=== PATIENT | male | born 1940 | race Caucasian/White ===

== ENCOUNTER 2023-06-13 15:57 | Emergency (ER) | payer BC ==
[~2023-06-13] VITALS: Ht 167.6 cm; Wt 88.5 kg
--- OUTSIDE RECORDS SUMMARY | 2023-06-13 16:00 | XMS ---
PreManage Notification: EVAN DING Security General House Worker Events No recent Security Events currently on file [facility] There are no care providers on record at this time. Martin has no Care Guidelines for this patient. Cori VISIT COUNT (12 MO.) 1 USMAN Bustamante TOTAL 1 NOTE: Visits indicate total known visits. ED/UCC VISIT TRACKING (12 MO.) 06/13/2023 15:58 USMAN Singh OR TYPE: Emergency COMPLAINT: - GROIN PAIN INPATIENT VISIT TRACKING (12 MO.) No inpatient visits to display in this time frame [email or web address]
[2023-06-13] MEDS ORDERED: HYDROCODON-ACE1 EA10 PO (18:26)
[2023-06-13 18:36] VITALS: BP 114/63
== END 2023-06-13 18:36 | disposition home or self-care (01) ==
LOC: ED 15:57
DX: K40.90 Unilateral inguinal hernia, without obstruction or gangrene, not specified as recurrent (principal)
CPT/HCPCS: 99283; A9270

== ENCOUNTER 2023-07-05 19:19 | Emergency (ER) | payer BC ==
[~2023-07-05] VITALS: Ht 190.5 cm; Wt 88.9 kg
[~2023-07-05 19:19] MED LIST: ADULT ASPIRIN R81 MG PO; AMLODIPINE BESY10 MG PO; ASPIRIN EC325 MG PO; ATORVASTATIN CA40 MG PO; BENAZEPRIL HCL40 MG PO; HYDROCODON-ACE1 EA10 PO; HYDROCODON-ACE1 EA11 PO; HYDROCODON-ACE1 EAC8 PO; ISOSORBIDE MONO30 MG PO; METFORMIN HCL500 MG PO; METOPROLOL SUCC50 MG PO; MOTRIN IB200 MG PO; TAMSULOSIN HCL0.4 MG PO; TRAZODONE HCL100 MG PO; TYLENOL EXTRA500 MG PO
--- OUTSIDE RECORDS SUMMARY | 2023-07-05 19:23 | XMS ---
PreManage Notification: EVAN DING Security Supervisor Grove Events No recent Security Events currently on file CRITERIA MET - [facility] - [facility] - 2 Visits in 30 Days CARE PROVIDERS There are no care providers on record at this time. Martin has no Care Guidelines for this patient. Cori V[facility] (12 MO.) 2 [facility] T[facility] 2 NOTE: Visits indicate total known visits. ED/C VISIT TRACKING (12 MO.) 07/05/2023 19:20 [facility] TYPE: Emergency COMPLAINT: - POST OP PROBLEM 06/13/2023 15:[address] [facility] OR TYPE: Emergency COMPLAINT: - GROIN PAIN DIAGNOSES: - Right lower quadrant pain - Unilateral inguinal hernia, without obstruction or gangrene, not specified as recurrent INPATIENT VISIT TRACKING (12 MO.) No inpatient visits to display in this time frame [id number]
[2023-07-05 20:06] LABS: BASOPHILS 0.1 % (0-2); HEMATOCRIT 42.8 % (35.0-50.0); HEMOGLOBIN 14.1 g/dL (12.0-18.0); LYMPHOCYTES 2.5 % (24-44); MCV 90.9 fl (81-99); MONOCYTES 3.7 % (0-12); NEUTROPHILS 93.7 % (39-80); PLATELET COUNT 173 K/uL (140-440); RBC 4.71 M/ul (4.3-5.7); RDW 15.3 (10.5-15.0)
[2023-07-05 20:13] LABS: INR 1.01 (0.80-1.30); PROTIME 12.8 Sec (11.2-14.2)
[2023-07-05 21:02] VITALS: BP 129/73
== END 2023-07-05 21:06 | disposition home or self-care (01) ==
LOC: ED 19:19
PROVIDERS: Family Medicine
DX: L76.22 Postprocedural hemorrhage of skin and subcutaneous tissue following other procedure (principal); Z79.84 Long term (current) use of oral hypoglycemic drugs; Z79.899 Other long term (current) drug therapy; Z79.82 Long term (current) use of aspirin
CPT/HCPCS: 36415; 85025; 85610; 99283

== ENCOUNTER 2024-03-21 06:02 | Emergency (ER) | payer BC ==
[~2024-03-21] VITALS: Ht 190.5 cm; Wt 87.1 kg
--- OUTSIDE RECORDS SUMMARY | 2024-03-21 06:03 | XMS ---
PreManage Notification: EVAN DING Security Facilities Coordinator Events No recent Security Events currently on file CRITERIA MET - [facility] - [facility] - 2 Visits in 30 Days CARE PROVIDERS There are no care providers on record at this time. Martin has no Care Guidelines for this patient. Cori V[facility] (12 MO.) 4 [facility] 4 NOTE: Visits indicate total known visits. ED/C VISIT TRACKING (12 MO.) 03/21/2024 06:02 [facility] COMPLAINT: - FALL 03/15/2024 13:48 USMAN Singh OR TYPE: Emergency COMPLAINT: - BACK PAIN DIAGNOSES: - Dorsalgia, unspecified - Encounter for issue of repeat prescription - Essential (primary) hypertension - intermediate card tender (current) use of aspirin - assisted (current) use of oral hypoglycemic drugs - Other chronic pain - Other termite treater helper (current) drug therapy 07/05/2023 19:20 USMAN Singh OR TYPE: Emergency COMPLAINT: - POST OP PROBLEM DIAGNOSES: - assisted (current) use of aspirin - intermediate card tender (current) use of oral hypoglycemic drugs - Other chcf (current) drug therapy - Postprocedural hemorrhage of skin and subcutaneous tissue following other procedure 06/13/2023 15:58 USMAN Singh OR TYPE: Emergency COMPLAINT: - GROIN PAIN DIAGNOSES: - Right lower quadrant pain - Unilateral inguinal hernia, without obstruction or gangrene, not specified as recurrent INPATIENT VISIT TRACKING (12 MO.) No inpatient visits to display in this time frame [email or web address]
[2024-03-21 06:33] LABS: NEUTROPHILS 88.7 % (39-80)
[2024-03-21 06:38] LABS: BASOPHILS 0.2 % (0-2); EOSINOPHILS 0.5 % (0-6); HEMATOCRIT 39.9 % (35.0-50.0); HEMOGLOBIN 13.2 g/dL (12.0-18.0); LYMPHOCYTES 4.2 % (24-44); MCH 29.2 (27-36); MCV 88.5 fl (81-99); MONOCYTES 6.4 % (0-12); PLATELET COUNT 138 K/uL (140-440); RBC 4.51 M/ul (4.3-5.7); RDW 15.4 (10.5-15.0)
[2024-03-21 06:54] LABS: ALBUMIN 3.4 g/dL (3.4-5.0); ALBUMIN/GLOBULIN RATIO 1.31 (1.1-2.4); ALCOHOL, MEDICAL <3 ng/dL (<3); ALKALINE PHOSPHATASE 54 U/L (46-116); ALT (SGPT) 21 U/L (14-59); ANION GAP 15.1 (7-21); AST (SGOT) 18 U/L (15-37); BILIRUBIN, TOTAL 0.6 ng/dL (0.2-1.0); BUN/CREATININE RATIO 18.88 (6.0-28.6); CALCIUM 8.4 mg/dL (8.5-10.1); CARBON DIOXIDE 24 mmol/L (21-32); CHLORIDE 94 mmol/L (98-107); CREATINE KINASE 60 U/L (39-308); GLOMERULAR FILTRATION RATE,EST 85 mL/min (>60); MAGNESIUM 1.2 mg/dL (1.8-2.4); POTASSIUM 4.1 mmol/L (3.5-5.1); UREA NITROGEN 17 mg/dL (7-18)
[2024-03-21] MEDS ORDERED: HYDROCODONE/APAP 10/325 1 TAB PO ONE (07:00)
[2024-03-21] MEDS ORDERED: CALCITONIN-SAL3.7 ML NAS (08:30)
[2024-03-21] MEDS ORDERED: PERCOCET 5-3251 EACH PO (08:35)
[2024-03-21] MEDS ORDERED: HYDROCODONE/ACETA 5/325 TAB PO ONE (08:45)
[2024-03-21 08:59] VITALS: BP 138/79
--- NOTE | 2024-03-23 11:28 | EKG ---
[facility] [address] [facility] [place], [place] [address] Signed Atrial fibrillation Indeterminate axis Right bundle branch block Abnormal ECG When compared with ECG of 02-JUL-2023 09:53, No significant change was found Confirmed by DMITRI CHAMBERS MD ([id number]) on 03/23/2024 11:28:49 AM Electronically Signed By: DMITRI CHAMBERS 03/23/24 1128 PATIENT NAME: EVAN DING NEVAREZ Electrocardiogram DATE OF : 44 PHYSICIAN: DMITRI CHAMBERS REPORT #: [id number] REPORT IS CONFIDENTIAL AND NOT TO BE RELEASED WITHOUT AUTHORIZATION
== END 2024-03-21 08:59 | disposition home or self-care (01) ==
LOC: ED 06:02
PROVIDERS: Internal Medicine
DX: S32.019A Unspecified fracture of first lumbar vertebra, initial encounter for closed fracture (principal); W01.0XXA Fall on same level from slipping, tripping and stumbling without subsequent striking against object, initial encounter; I10 Essential (primary) hypertension; R73.03 Prediabetes; Z79.899 Other long term (current) drug therapy
CPT/HCPCS: 36415; 70450; 71045; 72131; 80053; 82553; 83735; 84484; 85025; 93005; 93010; 99284-25; A9270; G0480

== ENCOUNTER 2024-04-01 14:32 | Inpatient (IN) | payer MEDICARE, BC ==
[~2024-04-01] VITALS: Ht 190.5 cm; Wt 87.6 kg
[~2024-04-01 14:32] MED LIST changes: +CALCITONIN-SAL3.7 ML NAS; +PERCOCET 5-3251 EACH PO
--- OUTSIDE RECORDS SUMMARY | 2024-04-01 14:33 | XMS ---
PreManage Notification: EVAN DING Security Key Ringer Events No recent Security Events currently on file CRITERIA MET - [facility] - [facility] - 2 Visits in 30 Days CARE PROVIDERS There are no care providers on record at this time. Martin has no Care Guidelines for this patient. Cori VISIT COUNT (12 MO.) 5 [facility] TOTAL 5 NOTE: Visits indicate total known visits. ED/C VISIT TRACKING (12 MO.) 04/01/2024 14:32 [facility] TYPE: Emergency COMPLAINT: - DIZZINESS 03/21/2024 06:02 USMAN Singh OR TYPE: Emergency COMPLAINT: - FALL DIAGNOSES: - Essential (primary) hypertension - Fall on same level from slipping, tripping and stumbling without subsequent striking against object, initial encounter - Low back pain, unspecified - Other exterminator (current) drug therapy - Prediabetes - Unspecified fracture of first lumbar vertebra, initial encounter for closed fracture 03/15/2024 13:48 USMAN Singh OR TYPE: Emergency COMPLAINT: - BACK PAIN DIAGNOSES: - Dorsalgia, unspecified - Encounter for issue of repeat prescription - Essential (primary) hypertension - salvage determiner (current) use of aspirin - salvage determiner (current) use of oral hypoglycemic drugs - Other chronic pain - Other long-term (current) drug therapy 07/05/2023 19:20 USMAN Singh OR TYPE: Emergency COMPLAINT: - POST OP PROBLEM DIAGNOSES: - salvage determiner (current) use of aspirin - salvage determiner (current) use of oral hypoglycemic drugs - Other exterminator (current) drug therapy - Postprocedural hemorrhage of skin and subcutaneous tissue following other procedure 06/13/2023 15:[address] [facility] OR TYPE: Emergency COMPLAINT: - GROIN PAIN DIAGNOSES: - Right lower quadrant pain - Unilateral inguinal hernia, without obstruction or gangrene, not specified as recurrent INPATIENT VISIT TRACKING (12 MO.) No inpatient visits to display in this time frame [id number]
[2024-04-01] MEDS ORDERED: LISINOPRIL10 MG PO (14:46)
[2024-04-01] MEDS ORDERED: METOPIRONE250 MG PO (14:47)
[2024-04-01] MEDS ORDERED: SODIUM CHLORIDE 0.9% 1,000 ML IV ONE ×3 (15:00→21:22)
[2024-04-01] MEDS ORDERED: HYDROmorphone HCL 1 MG/ML SYR IV PRN ×2 (15:00→23:15)
[2024-04-01 15:09] LABS: BASOPHILS 0.4 % (0-2); EOSINOPHILS 0.8 % (0-6); HEMATOCRIT 35.6 % (35.0-50.0); HEMOGLOBIN 12.2 g/dL (12.0-18.0); LYMPHOCYTES 7.3 % (24-44); MCH 30.1 (27-36); MCHC 34.3 g/dl (30-36); MCV 87.7 fl (81-99); MONOCYTES 9.5 % (0-12); PLATELET COUNT 240 K/uL (140-440); RBC 4.06 M/ul (4.3-5.7); RDW 16.3 (10.5-15.0)
[2024-04-01 15:14] LABS: ALBUMIN 2.9 g/dL (3.4-5.0); ALBUMIN/GLOBULIN RATIO 1.16 (1.1-2.4); ANION GAP 11.4 (7-21); BILIRUBIN, TOTAL 0.5 ng/dL (0.2-1.0); BUN/CREATININE RATIO 13.86 (6.0-28.6); CALCIUM 8.3 mg/dL (8.5-10.1); CREATININE, SERUM 1.01 mg/dL (0.70-1.30); POTASSIUM 3.4 mmol/L (3.5-5.1); PROTEIN, TOTAL 5.4 g/dL (6.4-8.2)
[2024-04-01] MEDS ORDERED: fentaNYL citrate 100 MCG/2 ML VIAL IV PRN (17:00)
[2024-04-01] MEDS ORDERED: ESOMEPRAZOLE MA40 MG PO (18:16)
[2024-04-01] MEDS ORDERED: DULOXETINE HCL30 MG PO (18:17)
[2024-04-01] MEDS ORDERED: LIDOCAINE 2% VISCOUS 6 ML SYR TOP ONE ×2 (19:00→19:30)
[2024-04-01] MEDS ORDERED: LACTATED RINGER'S 1,000 ML IV ONE ×2 (19:15→20:45)
[2024-04-01 19:31] LABS: RDW 16.6 (10.5-15.0)
[2024-04-01 19:34] LABS: BASOPHILS 0.8 % (0-2); EOSINOPHILS 0.4 % (0-6); HEMATOCRIT 31.7 % (35.0-50.0); HEMOGLOBIN 10.5 g/dL (12.0-18.0); MCH 29.6 (27-36); MCV 89.7 fl (81-99); MONOCYTES 7.8 % (0-12); PLATELET COUNT 224 K/uL (140-440); RBC 3.53 M/ul (4.3-5.7)
[2024-04-01 20:05] LABS: ABO O; ANTIBODY SCREEN NEGATIVE; RH POSITIVE
[2024-04-01] MEDS ORDERED: NOREPINEPHRINE BITARTRATE 250 ML IV SCH ×2 (20:15→20:30)
[2024-04-01 20:16] LABS: BILIRUBIN, URINE NEGATIVE (negative); BLOOD/HGB, URINE TRACE-I (Negative); KETONE, URINE NEGATIVE (Negative); LEUK ESTERASE, URINE NEGATIVE (negative); NITRITE, URINE NEGATIVE (negative)
[2024-04-01 20:24] LABS: EPITHELIAL CELLS, URINE SQUAMOUS 1+ /lpf (0-1+)
[2024-04-01 20:25] LABS: BACTERIA, URINE RARE /hpf (negative); CASTS, URINE NONE SEEN \\lpf; COLLECTION TYPE, URINE CATH; CRYSTALS, URINE NONE SEEN (0-1+); REFLEX CULTURE, URINE No (No); WHITE BLOOD CELLS, URINE 0-1 /HPF (0-5)
[2024-04-01] MEDS ORDERED: ondansetron HCL 4 MG/2 ML VIAL ONE (20:45)
[2024-04-01] MEDS ORDERED: propofoL 200 MG/20 ML VIAL ONE (20:45)
[2024-04-01] MEDS ORDERED: KETOROLAC TROMETHAMINE 30 MG/ML VIAL ONE (20:45)
[2024-04-01] MEDS ORDERED: ROCURONIUM BROMIDE 50 MG/5 ML SYR ONE (20:45)
[2024-04-01] MEDS ORDERED: SUCCINYLCHOLINE IN 0.9% NACL 200 MG/10 ML SYRINGE ONE (20:45)
[2024-04-01] MEDS ORDERED: SUGAMMADEX SODIUM 200 MG/2 ML ML ONE (20:45)
[2024-04-01] MEDS ORDERED: MIDAZOLAM HCL 2 MG/2 ML VIAL ONE ×2 (20:45→22:59)
[2024-04-01] MEDS ORDERED: FAMOTIDINE 20 MG/ 2 ML VIAL ONE (20:45)
[2024-04-01] MEDS ORDERED: fentaNYL citrate 100 MCG/2 ML VIAL ONE (20:45)
[2024-04-01] MEDS ORDERED: METOCLOPRAMIDE HCL 10 MG/2 ML SDV ONE (20:45)
[2024-04-01] MEDS ORDERED: DEXAMETHASONE SOD PHOS 4 MG/ML VIAL ONE (20:45)
[2024-04-01] MEDS ORDERED: LIDOCAINE HCL 4% 5 ML AMP ONE (20:46)
[2024-04-01] MEDS ORDERED: ETOMIDATE 40 MG/20 ML VIAL ONE (20:50)
[2024-04-01 20:54] LABS: IS CROSSMATCH COMPATIBLE
[2024-04-01 20:54] LABS: ABO O; RH POSITIVE
[2024-04-01] MEDS ORDERED: TRANEXAMIC ACID IN NACL,ISO-OS 1,000 MG/100 ML PIGGYBACK IV SCH (21:00)
[2024-04-01] MEDS ORDERED: WATER STERILE 20 ML VIAL ONE (22:41)
[2024-04-01] MEDS ORDERED: VECURONIUM BROMIDE 20 MG VIAL IV ONE (22:41)
[2024-04-01 22:55] VITALS: BP 122/86
[2024-04-01 23:00] VITALS: BP 129/92
[2024-04-01] MEDS ORDERED: ACETAMINOPHEN 650 MG SUPP PR PRN (23:15)
[2024-04-01] MEDS ORDERED: PROCHLORPERAZINE EDISYLATE 10 MG/2 ML VIAL IV PRN (23:15)
[2024-04-01] MEDS ORDERED: ondansetron HCL 4 MG/2 ML VIAL IV PRN (23:15)
[2024-04-01] MEDS ORDERED: DEXTROSE 5% - LACTATED RINGERS 1,000 ML IV SCH (23:15)
--- NOTE | 2024-04-01 23:18 | NUR ---
04/01/24 0336 Abril Philippe 6778-PATIENT TRANSPORTED FROM OR TO CCU ON A VENTILATOR WITH CELINA JAQUEZ AND STAFF RNS'S. CELINA JAQUEZ GAVE REPORT TO CCU RN'S WHO WILL RESUME CARE. HOSPITALIST AT BEDSIDE
[2024-04-01 23:19] VITALS: BP 115/83
[2024-04-01 23:30] VITALS: BP 116/77
[2024-04-01 23:34] LABS: BASE EXCESS, BLOOD GAS -12.3 mmol/L (-2-2); HCO3, BLOOD GAS 15.9 mmol/L (22-26); O2 SATURATION, BLOOD GAS > 100.0 % (95.0-100.0); PCO2, BLOOD GAS 39.6 mmHg (35-45); PO2, BLOOD GAS 319 mmHg (80-100); TOTAL CO2, BLOOD GAS 17.2
[2024-04-01 23:35] LABS: OXYGEN RECEIVED, BLOOD GAS 100
[2024-04-01 23:36] LABS: PLATELET COUNT 136 K/uL (140-440)
[2024-04-01 23:39] LABS: BASOPHILS 0.6 % (0-2); EOSINOPHILS 0.6 % (0-6); HEMATOCRIT 43.1 % (35.0-50.0); HEMOGLOBIN 13.8 g/dL (12.0-18.0); LYMPHOCYTES 6.1 % (24-44); MCH 29.1 (27-36); MCHC 32.1 g/dl (30-36); MCV 90.6 fl (81-99); MONOCYTES 4.4 % (0-12); NEUTROPHILS 88.3 % (39-80); RBC 4.76 M/ul (4.3-5.7); RDW 16.3 (10.5-15.0)
[2024-04-01 23:45] VITALS: BP 105/92
[2024-04-01] MEDS ORDERED: METOPROLOL TARTRATE 5 MG/5 ML VIAL IV PRN (23:45)
[2024-04-01] MEDS ORDERED: MIDAZOLAM HCL 100 MG in DEXTROSE 5% 80 ML IV SCH (23:45)
[2024-04-01] MEDS ORDERED: EPINEPHrine HCL 4 MG in DEXTROSE 5% 250 ML IV SCH (23:45)
[2024-04-01 23:52] LABS: ALBUMIN 2.5 g/dL (3.4-5.0); ALBUMIN/GLOBULIN RATIO 1.14 (1.1-2.4); ANION GAP 17.9 (7-21); BILIRUBIN, TOTAL 0.6 ng/dL (0.2-1.0); BUN/CREATININE RATIO 13.53 (6.0-28.6); CALCIUM 7.5 mg/dL (8.5-10.1); CREATININE, SERUM 1.33 mg/dL (0.70-1.30); MAGNESIUM 1.6 mg/dL (1.8-2.4); POTASSIUM 3.9 mmol/L (3.5-5.1); PROTEIN, TOTAL 4.7 g/dL (6.4-8.2)
[2024-04-02] VITALS (37 sets, daily range): BP systolic 73–137; BP diastolic 29–100
[2024-04-02] MEDS ORDERED: MIDAZOLAM HCL 2 MG/2 ML VIAL IV ONE
--- NOTE | 2024-04-02 | NUR ---
PT ARRIVED TO UNIT FROM OR VIA STRETCHER. REPORT RECEIVED FROM OR NURSE AND MARKET RESEARCH COORDINATOR. PT INTUBATED, SEDATED, AND PARALYZED. PT ET TUBE 25 CM AT THE TEETH. OG IN PLACE AND ON INTERMITTENT SUCTION. VENT SETTING; RATE 20, FIO2 100, TV 500, AND PEEP 5. RASS SCORE -5. PT JOANNE DRAIN ON LOWER LEFT ABDOMEN DRAINING BRIGHT RED BLOOD, DRESSING C/D/I. PT SURGICAL SITE DRESSING C/D/I. PT FUNEZ CATH IS PATENT AND SECURED AT PT THIGH. PT HAS SCD IN PLACE. PT COOL TO TOUCH, RECTAL TEMP TAKEN; 95.4. BEAR HUGGER PLACED ON PT AND WARM BLANKETS PROVIDED. PT HAS LEFT FEMORAL TRIPLE LUMEN AND RIGHT AC 18G IV. SOFT RESTRAINTS IN PLACE TO BILAT ARMS. RT AT BEDSIDE. DR MCKAY AND DR SHIPMAN AT BEDSIDE, PLAN OF CARE AND ORDERS DISCUSSED. VSS AND NAD NOTED VIA CONTINOUS MONITOR AND DIRECT OBSERVATION.
[2024-04-02] MEDS ORDERED: GLUCAGON,HUMAN RECOMBINANT 1 MG/ML VIAL SUB-Q PRN (00:30)
[2024-04-02] MEDS ORDERED: MAGNESIUM SULFATE 2 GM/50 ML BAG IV ONE (00:30)
[2024-04-02] MEDS ORDERED: DEXTROSE 50% 50 ML SYR IV PRN ×2 (00:30)
[2024-04-02] MEDS ORDERED: DEXTROSE 5% 1,000 ML IV PRN (00:30)
[2024-04-02] MEDS ORDERED: IBLOOD GLUCOSE TEST STRIP 1 EA TEST XX PRN (00:30)
--- NOTE | 2024-04-02 00:47 | EKG ---
[facility] [address] [facility] [place] [address] Signed Atrial fibrillation Left axis deviation Right bundle branch block Abnormal ECG When compared with ECG of 21-MAR-2024 06:30, No significant change was found Confirmed by Analia Mckay MD () on 04/02/2024 12:47:30 AM Electronically Signed By: ANALIA MCKAY MD 04/02/24 0047 PATIENT NAME: EVAN DING NEVAREZ Electrocardiogram DATE OF : 44 PHYSICIAN: ANALIA MCKAY MD REPORT #: [id number] REPORT IS CONFIDENTIAL AND NOT TO BE RELEASED WITHOUT AUTHORIZATION
--- NOTE | 2024-04-02 00:48 | EKG ---
[facility] [address] [facility] [place] [address] Signed Atrial fibrillation with rapid ventricular response Left axis deviation Right bundle branch block Abnormal ECG When compared with ECG of 01-APR-2024 14:31, No significant change was found Confirmed by Analia Mckay MD () on 04/02/2024 12:48:02 AM Electronically Signed By: ANALIA MCKAY MD 04/02/24 0048 PATIENT NAME: EVAN DING Electrocardiogram DATE OF : 44 PHYSICIAN: ANALIA MCKAY MD REPORT #: [id number] REPORT IS CONFIDENTIAL AND NOT TO BE RELEASED WITHOUT AUTHORIZATION
[2024-04-02] MEDS ORDERED: Insulin Regular, Human 100 UNIT/ML ML SUB-Q SCH (02:00)
[2024-04-02] MEDS ORDERED: IBLOOD GLUCOSE TEST STRIP 1 EA TEST VI SCH (02:00)
--- NOTE | 2024-04-02 02:00 | NUR ---
PT REMAINS AT A RASS SCORE OF -5. PT ET TUBE 25 CM AT THE TEETH. OG IN PLACE, ON LOW INTERMITTENT SUCTION. PT FUNEZ CATH REMAINS PATENT AND DRAINING. PT SURGICAL DRESSING C/D/I. PT JOANNE DRAIN IN PLACE AND CONTINUES TO DRAIN BRIGHT RED BLOOD. RESTRAINTS REMAIN IN PLACE. PT LEFT FEMORAL TRIPLE LUMEN AND 20G RIGHT AC IV SITE PATENT AND INFUSING PER EMAR. BEAR HUGGER STILL IN PLACE. SCD'S IN PLACE. PT VSS, NO DISTRESS NOTED. WILL CONTIUE TO MONITOR VIA CONTINOUS MONITOR AND DIRECT OBSERVATION.
[2024-04-02] MEDS ORDERED: ETOMIDATE 40 MG/20 ML VIAL IV ONE ×3 (02:51→07:00)
[2024-04-02] MEDS ORDERED: EPINEPHrine HCL 4 MG in DEXTROSE 5% 250 ML IV SCH (03:00)
[2024-04-02] MEDS ORDERED: NOREPINEPHRINE BITARTRATE 250 ML IV SCH (03:00)
[2024-04-02] MEDS ORDERED: ROCURONIUM BROMIDE 50 MG/5 ML VIAL IV ONE ×2 (03:00)
--- NOTE | 2024-04-02 03:00 | NUR ---
RT IN FOR ABG DRAW. PATIENT VS STABLE; TITRATED PRESSORS PER ORDER. SEE FLOWSHEET.
[2024-04-02 03:21] LABS: BASE EXCESS, BLOOD GAS -7.4 mmol/L (-2-2); HCO3, BLOOD GAS 18.7 mmol/L (22-26); O2 SATURATION, BLOOD GAS 99.1 % (95.0-100.0); PCO2, BLOOD GAS 37.6 mmHg (35-45); PH, BLOOD GAS 7.3 (7.35-7.45); TOTAL CO2, BLOOD GAS 19.9
--- NOTE | 2024-04-02 03:27 | NUR ---
DISCUSSED PATIENT LAB FINDINGS WITH . ORDERS RECEIVED FOR IV MAG REPLACEMENT, ACCU CHECKS AND SSI. MEDS PROVIDED PER ORDER, SEE EMAR.
[2024-04-02] MEDS ORDERED: PIPERACILLIN/TAZOBACTAM 3.375 GM VIAL ONE (05:05)
--- NOTE | 2024-04-02 05:17 | NUR ---
labs drawn per femoral site; collection per policy. site draws easily.
[2024-04-02 05:22] LABS: BASOPHILS 0.2 % (0-2); HEMATOCRIT 40.3 % (35.0-50.0); HEMOGLOBIN 13.6 g/dL (12.0-18.0); LYMPHOCYTES 1.9 % (24-44); MCH 29.4 (27-36); MCHC 33.6 g/dl (30-36); MCV 87.5 fl (81-99); MONOCYTES 4.5 % (0-12); NEUTROPHILS 93.4 % (39-80); PLATELET COUNT 155 K/uL (140-440); RBC 4.61 M/ul (4.3-5.7); RDW 16.3 (10.5-15.0)
[2024-04-02 05:43] LABS: ALBUMIN 2.4 g/dL (3.4-5.0); ALBUMIN/GLOBULIN RATIO 0.96 (1.1-2.4); ANION GAP 14.7 (7-21); BUN/CREATININE RATIO 11.66 (6.0-28.6); CALCIUM 7.6 mg/dL (8.5-10.1); CREATININE, SERUM 1.8 mg/dL (0.70-1.30); PHOSPHORUS, INORGANIC 6.7 mg/dL (2.5-4.9); POTASSIUM 4.7 mmol/L (3.5-5.1); PROTEIN, TOTAL 4.9 g/dL (6.4-8.2)
[2024-04-02] MEDS ORDERED: PIPERACILLIN/TAZOBACTAM 3.375 GM in DEXTROSE 5% 100 ML IV SCH (06:00)
--- NOTE | 2024-04-02 06:00 | NUR ---
PT TRIPLE LUMEN DRESSING CHANGED. ABX HUNG PER EMAR. PT RASS SCORE -5. PT BP TRENDING DOWN, DESPITE TITRATIONS PER FLOWSHEET. PT UO INSUFFICIANT.
--- NOTE | 2024-04-02 06:21 | NUR ---
update provided to on patient's vs, urine output and labs. Order for NS bolus, see emar.
[2024-04-02] MEDS ORDERED: SODIUM CHLORIDE 0.9% 1,000 ML IV SCH (06:30)
[2024-04-02 06:43] LABS: BASE EXCESS, BLOOD GAS -8.7 mmol/L (-2-2); HCO3, BLOOD GAS 18.2 mmol/L (22-26); O2 SATURATION, BLOOD GAS 96.2 % (95.0-100.0); OXYGEN RECEIVED, BLOOD GAS 40%; PH, BLOOD GAS 7.23 (7.35-7.45); PO2, BLOOD GAS 94 mmHg (80-100); TOTAL CO2, BLOOD GAS 19.5
--- NOTE | 2024-04-02 06:48 | OR ---
[facility] [address] [place], [place] [address] Signed DATE OF OPERATION: 04/01/2024 SURGEON: Jonathan Shipman MD PREOPERATIVE DIAGNOSES: 1. Ruptured spleen with bleeding. 2. L1 fracture. POSTOPERATIVE DIAGNOSES: 1. Ruptured spleen with bleeding. 2. L1 fracture. PROCEDURE: Splenectomy and placement of left upper quadrant drain. ESTIMATED BLOOD LOSS: 1500 to 2000 mL. In was 6 units packed red blood cells, 2 units of FFP, and 1 L crystalloid. Out was several 100 mL of urine. 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 About 7 days ago, he fell and he came to emergency room with an L1 fracture. The bone was too thin for the neurosurgeon doing anything mechanically. He was sent home with a TLSO brace. He has had a lot of trouble in the home using the brace with the help of his friends and neighbors. He took another fall in the bathroom because he was dizzy. He was brought to our local emergency room. I really do not know all those details because he was an emergent case. Initially, the repeat CT scan showed the L1 fracture had not changed, but he certainly had a rather large spleen and blood in his abdomen. He had a repeat CT with some contrast and it showed that he was bleeding from the spleen. He became hypotensive and required active resuscitation in the ER by our 2 ER doctors who were changing shifts. I was called to come emergently to see Evan. He was alert, awake, and interactive and able to talk to me just before he was intubated. He already had his peripheral IVs placed and a left femoral catheter placed by our ER physician. Because he was so hypotensive, they were unable to place an IJ even with the assistance of the ultrasound. Amazingly, his abdomen was generally soft and flat. He did tell me he wanted everything done and he wanted to be a full code. He understands this was quite serious and that there is risk including, but not limited to bleeding, infection, scarring, change in contour of the skin, pancreatitis, and even Electronically Signed By: JONATHAN SHIPMAN MD 04/02/24 0648 PATIENT NAME: EVAN DING OPERATIVE REPORT DATE OF : 44 REPORT #: [id number] PHYSICIAN: JONATHAN SHIPMAN MD PCP: ANALIA SORIA MD REPORT IS CONFIDENTIAL AND NOT TO BE RELEASED WITHOUT AUTHORIZATION [address] [address] Signed . I also had the opportunity to call his briefly while we came into the OR. I reviewed the above findings with her as well. She also expressed understanding and wished to proceed. PROCEDURE NOTE: Evan was transferred over to our operating room table in the supine position. He was already intubated and therefore was placed back on the ventilator. He already had his Rosenberg catheter in place. He did not need any subcutaneous Lovenox or heparin given his bleeding spleen. SCDs were utilized. He was prepped and draped with Betadine solution. A standard left subcostal incision was made almost 3 fingerbreadths below his costal margin. We entered the abdomen with the help of the cautery and encountered of course a large amount of dark liquid and clotted blood. It took a few minutes to get that up out of the left lower quadrant. His spleen was actually in several pieces. The hilum was still attached of course and we came across that with 2 Pean clamps and the curved mayos. That was secured with 0 Vicryl ties. We took a minute to suction out the blood and found a couple of other small arterials and veins that we tied off with 0 Vicryl suture as well. We then packed the right upper quadrant with blue towels while we actively resuscitated him in the OR. He eventually received 6 units of packed red blood cells and 2 units of FFP along with a liter of crystalloid. With that, his systolic blood pressure that had been as low as 45 and it came back up over 100 and his heart rate came back down and we were able to turn the norepinephrine and epinephrine back down as well. We then used several liters of warm saline solution and we irrigated out his abdomen and suctioned out until clear. We took a look around at the liver and it looked fine. We went back and looked at the bed of the spleen and it was quite unremarkable without any ongoing bleeding. We brought a #10 flat Brooks drain through the lateral aspect of the left costal margin and we placed it into the splenic bed. There was just a small rent in the mesentery along the greater curve of the spleen. We closed that with a running 2-0 Vicryl suture so the bowel would not go up in that hole. Again, we had suctioned out the abdomen from the bed from all the way down into the pelvis. We then closed the abdominal wall in layers with running #1 PDS suture. We injected local anesthetic into the abdominal wall. The abdominal was irrigated once again. We then closed the dermis with interrupted 3-0 subcuticular Monocryl sutures. [place] were used to reapproximate the skin. Dry gauze and tape were then applied. After this, Evan was left intubated and paralyzed and transferred over to his hospital bed and taken in the ICU in much improved but critical condition. Jonathan Shipman MD Electronically Signed By: JONATHAN SHIPMAN MD 04/02/24 0648 PATIENT NAME: EVAN DING OPERATIVE REPORT DATE OF : 44 REPORT #: [id number] PHYSICIAN: JONATHAN SHIPMAN MD PCP: ANALIA SORIA MD REPORT IS CONFIDENTIAL AND NOT TO BE RELEASED WITHOUT AUTHORIZATION [address] [place], [place] [address] Signed [facility]/MODL /[id number] cc: MD Jonathan Quiroz MD Copies: ANALIA SORIA MD, ANDREW L MD ~ Electronically Signed By: JONATHAN SHIPMAN MD 04/02/24 0648 PATIENT NAME: EVAN DING OPERATIVE REPORT DATE OF : 44 REPORT #: [id number] PHYSICIAN: JONATHAN SHIPMAN MD PCP: ANALIA SORIA MD REPORT IS CONFIDENTIAL AND NOT TO BE RELEASED WITHOUT AUTHORIZATION
--- NOTE | 2024-04-02 06:48 | CONS ---
[facility] [address] [place], [place] [address] Signed DATE OF CONSULTATION: CHIEF COMPLAINT: Ground level fall. HISTORY OF PRESENT ILLNESS: Tyrese is an 84-year-old gentleman who came about a week ago to the ER after a fall and he had an L1 fracture. The neurosurgeon felt the bone was not sufficient enough to repair that mechanically. He had him use a TLSO brace. He had gone back home. He apparently is the primary care provider for his . He was having lot of trouble using the brace, and was having friends and neighbors help. He was feeling dizzy and he had another fall in the bathroom. He ended up coming to the emergency room. The exact details I do not know because I was called as he was hypotensive and tachycardic. Upon my arrival to the ER, he was awake, alert, and able to talk to me and gave us permission for the splenectomy for his ruptured spleen. He had already had a triple-lumen catheter placed in his left femoral vein by our ER doctor. He had 2 peripheral IVs and a Rosenberg catheter in place. Just after that, he was intubated and placed on the ventilator. He had been in the ER initially and there was no worsening of his L1 fracture, but they noticed blood in the abdomen, and he had a repeat CT scan with contrast and it showed that his spleen was ruptured and bleeding. He became hypotensive and was undergoing active resuscitation. I was called and arrived to the ER. PAST MEDICAL HISTORY: Inguinal hernia, chronic pain, hypertension, and he is a prediabetic. PAST SURGICAL HISTORY: Right inguinal hernia repair, CABG x3, and an aortobifem graft. SOCIAL HISTORY: He has a drink once in a while. He is to his , [place], at #[phone] Dr. Analia Vences is his primary care provider. He prefers the [facility]. He asked to be a full code. FAMILY HISTORY: Not reviewed. REVIEW OF SYSTEMS: Not reviewed. ALLERGIES: None. MEDICATIONS: [place] 10 mg, atorvastatin, trazodone, metyrapone, Nexium, duloxetine, calcitonin, Electronically Signed By: JONATHAN SHIPMAN MD 04/02/24 0648 PATIENT NAME: EVAN DING CONSULTATION DATE OF : 44 REPORT #: [id number] PHYSICIAN: JONATHAN SHIPMAN MD PCP: ANALIA SORIA MD REPORT IS CONFIDENTIAL AND NOT TO BE RELEASED WITHOUT AUTHORIZATION [facility] [address] [place] [address] Signed Percocet 5 mg, benazepril, metoprolol, isosorbide mononitrate, and metformin. PHYSICAL EXAMINATION: VITAL SIGNS: His blood pressure was 93/60, heart rate 78, respiratory rate 10, temperature was 98.2, and he was 92% on 2 L, but he was losing his O2 sats and therefore was intubated. He was 6 feet 3 inches tall at 85 kg with body mass index of 23. GENERAL: Evan was lying supine in his ER bed with staff in the room including Dr. Fernando Samuels who was coming in at the change of shifts. Amazingly, he was alert and awake, but not enough to talk to me. LUNGS: Clear to auscultation. CARDIOVASCULAR: On the monitor, he appeared to be in sinus rhythm. ABDOMEN: Generally soft and flat. He had a large ecchymosis over his right ribcage and over his right hand, probably from last week, that is quite dark. LABORATORY DATA: His white blood cell count is 9.3, hemoglobin was 12.2 and the repeat was 10.5, and platelets 224. Sodium is 130, his BUN is 14, and creatinine 1.0. BNP was 1863. Troponin was negative. UA was negative. Liver function tests were negative. Albumin is 2.9. RADIOGRAPHIC STUDIES: The CT scan of abdomen and pelvis I reviewed quickly with the ER doctor and he clearly has a significant splenic rupture and you can see the flush of contrast. ASSESSMENT AND PLAN: Evan is an 84-year-old gentleman with L1 fracture, but he has ruptured his spleen with significant bleeding to the point that he is hypotensive. He is undergoing active resuscitation. He asked me that, during the code form, he wanted to be a full code. He understands there is risk to the surgery including, but not limited to, bleeding, infection, scarring, change in contour of the skin as well as pancreatitis and other unforeseen comorbidities including . I also had opportunity to call his briefly on the phone as we went into the OR and explained her the above findings as well. She also expressed understanding and agreed with the above plan. Jonathan Shipman MD ALB/MODL /[id number] Electronically Signed By: JONATHAN SHIPMAN MD 04/02/24 0648 PATIENT NAME: TIMUREVAN ALEJO CONSULTATION DATE OF : 44 REPORT #: [id number] PHYSICIAN: JONATHAN SHIPMAN MD PCP: ANALIA SORIA MD REPORT IS CONFIDENTIAL AND NOT TO BE RELEASED WITHOUT AUTHORIZATION [address] [place], [place] [address] Signed cc: MD Analia Beaver MD Patient Chart Copies: JONATHAN SHIPMAN MD, KEVIN R MD ~ Electronically Signed By: JONATHAN SHIPMAN MD 04/02/24 0648 PATIENT NAME: EVAN DING CONSULTATION DATE OF : 44 REPORT #: [id number] PHYSICIAN: JONATHAN SHIPMAN MD PCP: ANALIA SORIA MD REPORT IS CONFIDENTIAL AND NOT TO BE RELEASED WITHOUT AUTHORIZATION
[2024-04-02] MEDS ORDERED: CALCIUM GLUCONATE 1,000 MG/10 ML VIAL IV ONE (07:15)
[2024-04-02 07:26] LABS: CHOLESTEROL/HDL RATIO 2.1
--- NOTE | 2024-04-02 07:30 | NUR ---
REPORT RECIEVED FROM DIVISION OPERATIONS SPECIALIST RN. PATIENT ON VENTILATOR 40% VT- 500, PEEP 5, RR- 20. ETT 25 A TTHE LIPS. PER REPORT THIS IS A HIGH PLACEMENT AND P[OSSIBLE FURTHER INSERTION OR TUBE EXCHANGE IS NEEDED. PATIENT ON LEVOPHED AT 20MCG/MIN PER REPORT. VERSED HAS BEEN OFF SINCE 0500. PATIENT MORE FIDGITY NOW AT THIS TIME. PATIENTS EYES ARE NOTED TO BE PINPOINT. MD SHIPMAN AWARE. PATIENT RESTRAINTS IN PLACE. PATIENT NOT WEARING HIS BACK BRACE FROM RECENT BACK FX. PER REPORT PATIENT IS ALLOWED TO SLEEP WITH IT OFF. PATIENT HAS HAD VERY MINIMAL URINE OUTPUT.
[2024-04-02] MEDS ORDERED: Calcium Gluconate in NS 1,000 MG/50 ML BAG IV SCH (07:45)
[2024-04-02] MEDS ORDERED: PANTOPRAZOLE SODIUM 40 MG/10 ML VIAL IV SCH (09:00)
--- NOTE | 2024-04-02 09:30 | NUR ---
CALLED MD MURRAY TO THE BEDSIDE TO ADDRESS CONCERNS. PATIENT SPO2 NOT READING ON ANY SITE. PATIENT IS COLD AND CLAMMY IN THE EXTREMITIES INCLUDING HIS NOSE/EAR WHERE CENTRAL SPO2 MONITORS READ. RT AT THE BEDSIDE. SEE NEW ORDERS FOR LABS AND ABG FOR OXYGEN CONFIRMATION. ADDRESSED LOW URINE OUTPUT OF 5MLS. WILL GET LABS AND THEN UPDATED RAMONITA OF LABS AND CURRENT CONDITION. PATIENTS BLOOD PRESSURE HAS DECREASED AND HAD TO INCREASE ON NOREPI FOR BLOOD PRESSURE SUPPORT. VERSED RESTARTED. PATIENT OPENED EYES BUT DID NOT FOLLOW OTHER COMMANDS. PATIENT RESTLESS AND FIDGITY. DOSE OF FENTANYL GIVEN D/T AGITATION/PAIN.
--- NOTE | 2024-04-02 09:31 | NUR ---
UR CLINICAL REVIEW: 2MN [facility] INPT MEDICARE INPT 04/01/24 AT 2314 TO CCU ORDER MATCHES STATUS NO AUTH REQUIRED PER MEDICARE RULES. SNF PLACEMENT LIKELY AT TIME OF DC. DC PLAN PENDING PATIENT AND FAMILY DECISION.
[2024-04-02 09:37] LABS: INR 1.23 (0.80-1.30); PROTIME 14.7 Sec (11.2-14.2)
[2024-04-02 09:48] LABS: BASE EXCESS, BLOOD GAS -8.5 mmol/L (-2-2); HCO3, BLOOD GAS 16.6 mmol/L (22-26); OXYGEN RECEIVED, BLOOD GAS 30%; PCO2, BLOOD GAS 33.4 mmHg (35-45); PH, BLOOD GAS 7.31 (7.35-7.45); PO2, BLOOD GAS 152 mmHg (80-100); TOTAL CO2, BLOOD GAS 17.5
[2024-04-02] MEDS ORDERED: CALCITONIN-SAL3.7 ML NAS (10:03)
[2024-04-02 10:08] LABS: HEMATOCRIT 35.4 % (35.0-50.0); HEMOGLOBIN 11.6 g/dL (12.0-18.0); MCH 29.3 (27-36); MCHC 32.9 g/dl (30-36); MCV 89.2 fl (81-99); PLATELET COUNT 155 K/uL (140-440); RBC 3.97 M/ul (4.3-5.7); RDW 16.3 (10.5-15.0)
[2024-04-02 10:21] LABS: ALBUMIN 2.1 g/dL (3.4-5.0); ANION GAP 15.6 (7-21); BILIRUBIN, TOTAL 0.7 ng/dL (0.2-1.0); BUN/CREATININE RATIO 11.44 (6.0-28.6); CALCIUM 7.9 mg/dL (8.5-10.1); CREATININE, SERUM 2.01 mg/dL (0.70-1.30); POTASSIUM 4.6 mmol/L (3.5-5.1); PROTEIN, TOTAL 4.2 g/dL (6.4-8.2)
--- NOTE | 2024-04-02 10:30 | NUR ---
RT IN TO ADVANCE ETT PER MD MURRAY. XRAY CONFIRMED PLACEMENT. ETT 27 AT THE [facility].
[2024-04-02 10:35] LABS: BANDS, MANUAL DIFF 24; LYMPHOCYTES, MANUAL DIFF 5; MONOCYTES, MANUAL DIFF 3; NEUTROPHILS, MANUAL DIFF 68
[2024-04-02 10:36] LABS: BASOPHILS, MANUAL DIFF 0; EOSINOPHILS, MANUAL DIFF 0
--- NOTE | 2024-04-02 10:56 | NUR ---
CALLED MD SHIPMAN TO UPDATE OF PATIENTS LABS. ADRESSES CONCERNS OF PATIENTS H/H DROPPING. LACTIC ACID REMAINING ELEVATED, AND BUN/CREAT WORSENING. REPORTED MD SWANSON SUGESTIONS OF IMAGING, FLUIDS, AND ART LINE. PER MD SHIPMAN GIVE 2 UNITS PRBC AND 2 UNITS FFP. OKAYED ART LINE. NO FLUID CHANGES AT THIS TIME. NOTIFIED BOTH MDS OF INCREASE IN PRESSORS AND INABILITY TO GET SPO2 ON MONITOR. ABG WAS DONE AND PO2 150'S. PATIENT HAS HAD ONLY 5MLS URINE OUTPUT IN 4 HOURS. BOTH MDS AWARE. PATIENT CURRENTLY ON 30MCG/MIN. PATIENT VERY CLAMMY AND COLD IN EXTREMITIES. WARM BLANKETS APPLIED TO EXTREMITIES. DAVID NOTIFIED OF ART LINE NEED.
--- NOTE | 2024-04-02 10:58 | NUR ---
VISITED DURING SPIRITUAL CARE ROUNDS. PT UNABLE TO TALK. PROVIDED PRAYER.
--- NOTE | 2024-04-02 11:26 | NUR ---
CALLED AND SPOKE WITH KUSH, . PATIENT LIVES WITH HER IN THEIR HOUSE. KUSH STATES THEY HAVE STAIRS, BUT THEY DO NOT USE THEM. PATIENT USES A WALKER AT [place] BUT NO OTHER DME PER . NEITHER THE PATIENT NOR HIS DRIVE, BUT SHE STATES THEY HAVE FAMILY MEMBERS WHO ASSIST THEM. KUSH DENIES DIFFICULTIES FINANCIALLY. DID ATTEMPT TO CALL STEVENSON, SON, PHONE NUMBER IS SAME AT PATIENT AND SPOUSE NUMBER AND HIS WORK NUMBER LISTED IS NON-WORKING. KUSH DENIES NEEDS AT THIS TIME. INFORMED HER SHE WILL BE NOTIFIED IF THERE ARE ANY CHANGES TO PATIENT CONDITION. SHE VERBALIZES UNDERSTANDING.
--- NOTE | 2024-04-02 11:30 | NUR ---
PATIENT REPOSITIONED WITH PILLOW SUPPORT. PATIENT NOTED TO HAVE REDDNEND AREA ON LEFT BUTTOCK. PICTURE TAKEN AND PLACED IN CHART. FOAM BOARDER PLACED FOR SKIN PROTECTION.
--- NOTE | 2024-04-02 11:32 | NUR ---
LAUREN WITH ANASTHESIA AT THE BEDSIDE TO TRY FOR ARTLINE.
[2024-04-02 12:34] LABS: IS CROSSMATCH COMPATIBLE
[2024-04-02 12:35] LABS: RBC, LEUKOREDUCED 18212410429900C; RBC, LEUKOREDUCED 18212412929800I
[2024-04-02 12:36] LABS: RBC, LEUKOREDUCED 18212410262500B-2
[2024-04-02 12:38] LABS: RBC, LEUKOREDUCED 18212405543200X; RBC, LEUKOREDUCED 18212409102600Y
[2024-04-02 12:40] LABS: FRESH FROZEN PLASMA 202123815248003-2; FRESH FROZEN PLASMA 20212389732200N
--- NOTE | 2024-04-02 13:30 | NUR ---
MD MURRAY AT THE BEDSIDE. UPDATED ON CONTINUED NO URINE OUTPUT. PATIENT RECIEVING BLOOD AND FFP AT THIS TIME. PATIENT TOLERATING WELL WITH NO ISSUES. SEE ORDERS FOR NEW LABS.
--- NOTE | 2024-04-02 13:30 | NUR ---
PATIENT REPOSITIONED WITH PILLOW SUPPORT.
--- NOTE | 2024-04-02 14:00 | NUR ---
PATIENT REPOSTIONED WITH PILLOW SUPPORT. PATIENT DRAW SHEET WAS CHANGED PRIOR IN SHIFT. GOWN CHANGED.
[2024-04-02] MEDS ORDERED: MULTIVITAMINS 10 ML,ZINC/COPPER/MANGANESE/SELENIUM 1 ML in AA 5% DEXT 20% WITH LYTES 2,... IV SCH (16:00)
--- NOTE | 2024-04-02 16:01 | NUR ---
MD CHAMBERS IN AT THE [facility]. REVIEWED PLAN OF CARE WITH MD AND CONCERNS FOR PATIENT. PER MD DO A CVP. CVP DONE AND NOTED TO BE 1-2. MD UPDATED MD SHIPMAN AND NEW ORDERS FOR A BOLUS AND REPEAT LABS. LABS ORDERED FOR 1600 BUT WILL WAIT UNTIL BLOOD TRANSFUSION IS COMPLETE. PATIENT CONTINUES TO HAVE NO URINE OUTPUT.
--- NOTE | 2024-04-02 16:27 | NUR ---
EET SECURED 27 @GUM 7.5, SECURE WITH BITEBLOCK IN PLACE, ORAL CARE GIVEN
[2024-04-02] MEDS ORDERED: LACTATED RINGER'S 1,000 ML IV ONE (17:00)
[2024-04-02 18:15] LABS: BASOPHILS 0.3 % (0-2); EOSINOPHILS 0.3 % (0-6); HEMATOCRIT 33.4 % (35.0-50.0); HEMOGLOBIN 11.4 g/dL (12.0-18.0); LYMPHOCYTES 3.6 % (24-44); MCH 29.6 (27-36); MCHC 34.2 g/dl (30-36); MCV 86.6 fl (81-99); MONOCYTES 8.2 % (0-12); NEUTROPHILS 87.6 % (39-80); PLATELET COUNT 153 K/uL (140-440); RBC 3.86 M/ul (4.3-5.7); RDW 16.8 (10.5-15.0)
[2024-04-02 18:24] LABS: ANION GAP 17.6 (7-21); BUN/CREATININE RATIO 13.13 (6.0-28.6); CALCIUM 7.1 mg/dL (8.5-10.1); CREATININE, SERUM 2.36 mg/dL (0.70-1.30); POTASSIUM 4.6 mmol/L (3.5-5.1)
[2024-04-02 18:25] LABS: PARTIAL THROMBOPLASTIN TIME 30.8 Sec (22.9-41.3)
[2024-04-02 18:26] LABS: INR 1.25 (0.80-1.30)
--- NOTE | 2024-04-02 18:46 | NUR ---
MD SHIPMAN CALLED FOR UPDATE. UPDATED THAT FLUID BOLUS COMPLETED, 2 UNITS, PRBC, AND 2 UNITS FFP COMPLETED. PATIENTS BP BETTER. MD NOTIFIED THAT PATIENT IS CLOTTING OFF HIS LINES. NO NEW ORDERS. MD CHAMBERS AWARE OF CLOTTED LINES. NO NEW ORDERS. OKAYED TO CONTINUE TO USE LINES IF THEY ARE FLUSH WELL. WHITE PORT OCCASIOANLLY GIVING BLOOD. ALL LINES HAVE BEEN IN FREQUESNT USE WITH QUANTITY OF FLUIDS/ MEDICATIONS NEEDING TO BE IN FUSED.
--- NOTE | 2024-04-02 18:57 | NUR ---
UPDATED MD CHAMBERS AND RAMONITA OF LABS. NO NEW ORDERS.
--- NOTE | 2024-04-02 20:23 | NUR ---
REPORT RECEIVED FROM DAY SHIFT RN. PT ON VENTILATOR WITH SETTINGS AT FIO2 40%, RR 24, VT 500, PEEP 5. PT RASS SCORE IS -4. PT IS ON LEVOPHED DRIP AT 10 MCG/MIN AND VERSED AT 6 ML/HR. PT FUNEZ CATH PATENT WITH LOW URINE OUTPUT. PT JOANNE DRAIN DRAINING MAZIN RED BLOOD, DRESSING C/D/I. PT SURGICAL SITE DRESSING IN PLACE. PT OG IN PLACE, ON LOW INTERMITTENT SUCTION. RESTRAINTS IN PLACE. ET TUBE IS 27CM AT THE GUMS. PT VSS STABLE.
--- NOTE | 2024-04-02 20:30 | NUR ---
DISCUSSED PATIENT'S PAIN MANAGEMENT WITH . PATIENT CHRONICALLY TAKES OPIOIDS AND ATTENDS A PAIN CLINIC FOR CHRONIC PAIN. ENCOURAGED IV PUSH OF OPIOIDS INDICATED AND WILL RE-EVALUATE FOR GOING PAIN CONTROL NEEDED.
--- NOTE | 2024-04-02 22:15 | NUR ---
PT HAD BM, LINEN CHANGED, AND FUNEZ CARE PROVIDED. PT IV SITE ON RIGHT AC NOTED TO BE LEAKING. PT REPOSITIONED AND TOLERATED WELL. SCD IN PLACE. ET TUBE 27 CM AT THE GUMS. PT VSS.
--- NOTE | 2024-04-02 22:19 | NUR ---
LABS DRAWN FROM ART LINE PER PROTOCOL. SAMPLE COLLECTED BY LAB AT BEDSIDE. FEMORAL LINE FLUSHES EASILY, PULLS BACK BLOOD IN DISTAL PORT BUT NOT ENOUGH FOR A SAMPLE. AWARE.
[2024-04-02 22:22] LABS: BASOPHILS 0.2 % (0-2); EOSINOPHILS 0.1 % (0-6); HEMATOCRIT 31.7 % (35.0-50.0); HEMOGLOBIN 10.8 g/dL (12.0-18.0); LYMPHOCYTES 3.2 % (24-44); MCH 29.7 (27-36); MCV 87.4 fl (81-99); MONOCYTES 6.6 % (0-12); NEUTROPHILS 89.9 % (39-80); PLATELET COUNT 162 K/uL (140-440); RBC 3.63 M/ul (4.3-5.7); RDW 16.7 (10.5-15.0)
--- NOTE | 2024-04-02 22:45 | NUR ---
DR CHAMBERS CALLED AND UPDATED ON RECENT LAB RESULTS AND PT CURRENT TEMPERATURE; 101.7. PT ART LINE ZEROED PER PROTOCOL. PT REMAINS AT A RASS SCORE -5. PT VENT SETTINGS ARE UNCHANGED. PT VSS.
[2024-04-02] MEDS ORDERED: ALBUTEROL/IPRATROPIUM 3 ML NEB INH PRN (23:00)
--- NOTE | 2024-04-02 23:50 | NUR ---
PATIENT PROVIDED PRN PAIN MEDS. INDICATORS FOR POSSIBLE PAIN INCLUDED CHEWING ON ET TUBE AND ELEVATED HR & RR.
[2024-04-03] VITALS (27 sets, daily range): BP systolic 91–124; BP diastolic 50–85
--- NOTE | 2024-04-03 00:30 | NUR ---
PT ASSESSMENT COMPLETE. PT RASS SCORE -3. PT PAIN MEDICATION GIVEN PER EMAR. PT VENTILATOR SETTING UNCHANGED; FI02 40%, RR 24, TV 500, AND PEEP 5. PT ET TUBE 27 CM AT THE GUMS. PT JOANNE DRAIN CONTINUES TO DRAIN MAZIN RED BLOOD, DRESSING NOTED TO HAVE SMALL AMOUNT OF BLOOD. PT FUNEZ PATENT AND DRAINING LAUREN COLORED URINE. URINE OUTPUT REMAINS LOW. PT SURGICAL SITE DRESSING C/D/I. SCD IN PLACE.
--- NOTE | 2024-04-03 04:28 | NUR ---
PT ASSESSMENT COMPLETE. PT VENT SETTINGS REMAIN UNCHANGED; FIO2 40%, RR 24, TV 500, PEEP 5. PT ETT 27 AT THE [facility]. OG ON LOW INTERMITTENT SUCTION. PT LUNGS ARE CLEAR UPPER BASES AND DIMINISHED LOWER BASES. PT RR IS ELEVATED, BREATHS ARE UNSYNCHRONIZED, AND IS TACHYCARDIC. PT JOANNE DRAIN CONTINUES TO DRAIN MAZIN RED BLOOD AND DRESSING NOTED TO HAVE MODERATE AMOUNT OF BRIGHT RED BLOOD. PT FUNEZ PATENT AND DRAINING LAUREN COLORED URINE. UO IS STILL LOW. PT FEBRILE. RESTRAINTS IN PLACE.
[2024-04-03 05:22] LABS: BASOPHILS 0.2 % (0-2); HEMATOCRIT 30.1 % (35.0-50.0); HEMOGLOBIN 10.2 g/dL (12.0-18.0); LYMPHOCYTES 3.2 % (24-44); MCH 29.3 (27-36); MCV 86.2 fl (81-99); NEUTROPHILS 89.6 % (39-80); PLATELET COUNT 193 K/uL (140-440); RBC 3.49 M/ul (4.3-5.7); RDW 16.9 (10.5-15.0)
--- NOTE | 2024-04-03 05:27 | NUR ---
LABS DRAWN FROM ART LINE PER PROTOCOL. SAMPLE COLLECTED BY LAB AT BEDSIDE.
--- NOTE | 2024-04-03 05:28 | NUR ---
PT IS CONTINUE ON SAME VENT SETTINGS AC/VC 500, RR 24,PEEP 5,MTP460%, ET TUBE SECURED AT 27CM AT GUMS, ORAL CARE DONE.
[2024-04-03 05:36] LABS: ALBUMIN 1.8 g/dL (3.4-5.0); ALBUMIN/GLOBULIN RATIO 0.75 (1.1-2.4); BILIRUBIN, TOTAL 0.6 ng/dL (0.2-1.0); BUN/CREATININE RATIO 16.73 (6.0-28.6); CALCIUM 7.1 mg/dL (8.5-10.1); CREATININE, SERUM 2.63 mg/dL (0.70-1.30); MAGNESIUM 1.7 mg/dL (1.8-2.4); PHOSPHORUS, INORGANIC 5.1 mg/dL (2.5-4.9); PROTEIN, TOTAL 4.2 g/dL (6.4-8.2)
--- NOTE | 2024-04-03 06:47 | NUR ---
UPDATE PROVIDED TO ; SEE EMAR FOR NEW ORDERS.
--- NOTE | 2024-04-03 06:49 | NUR ---
PT JOANNE DRESSING SATURATED WITH MAZIN RED BLOOD. DRESSING CHANGED. CENTRAL LINE LUMENS FLUSHED. VSS
--- NOTE | 2024-04-03 06:53 | NUR ---
PT HAD BM X1. PT REPOSITIONED IN BED. VSS.
[2024-04-03 06:56] LABS: BASE EXCESS, BLOOD GAS -7.2 mmol/L (-2-2); HCO3, BLOOD GAS 16.6 mmol/L (22-26); OXYGEN RECEIVED, BLOOD GAS 40%; PCO2, BLOOD GAS 29.4 mmHg (35-45); PH, BLOOD GAS 7.37 (7.35-7.45); PO2, BLOOD GAS 137 mmHg (80-100); TOTAL CO2, BLOOD GAS 17.5
[2024-04-03] MEDS ORDERED: MEROPENEM 500 MG in SODIUM CHLORIDE 0.9% 100 ML IV SCH (07:00)
[2024-04-03] MEDS ORDERED: MAGNESIUM SULFATE 2 GM/50 ML BAG IV ONE (07:00)
--- NOTE | 2024-04-03 07:08 | NUR ---
BURKE PROVIDED TO DR.BOWER. COHEN AT BEDSIDE.
--- NOTE | 2024-04-03 07:30 | NUR ---
REPORT RECIEVED FROM OILFIELD PLANT AND FIELD OPERATOR RN. PATIENT RESTING IN BED AND REMAINS ON VENTILATOR. PATIENT ON 10MLS/HR VERSED, 8MCG/MIN LEVOPHED. TPN. PER MDS ABX TO BE DCD AND CHANGED TO MEROPENEM. PATIENTS RR ELEVTED TO 36-39 DURING OILFIELD PLANT AND FIELD OPERATOR. PATIENT FEVERING THROUGH THE NIGHT. MDS AWARE. RESTRAINTS IN PLACE FOR TUBE PROTECTION.
[2024-04-03] MEDS ORDERED: LACTATED RINGER'S 250 ML IV SCH ×2 (08:15→11:30)
[2024-04-03] MEDS ORDERED: ALTEPLASE 2 MG/2 ML VIAL IV PRN (10:00)
--- NOTE | 2024-04-03 10:00 | NUR ---
SPOKE WITH THIS AM. PATIENTS SON CALLED FORT AN UPDATE. MD CHAMBERS CALLED FAMILY BACK TO DISCUSS PLAN OF CARE. FAMILY WILL BE IN TO HAVE A CARE DISCUSSION.
--- NOTE | 2024-04-03 10:21 | NUR ---
VISITED DURING SPIRITUAL CARE ROUNDS. PT UNABLE TO TALK, NO FAMILY PRESENT. PROVIDED SUPPORTIVE PRESENCE, PRAYER.
[2024-04-03 10:23] LABS: BASOPHILS 0.1 % (0-2); HEMATOCRIT 28.2 % (35.0-50.0); HEMOGLOBIN 9.4 g/dL (12.0-18.0); LYMPHOCYTES 2.8 % (24-44); MCHC 33.4 g/dl (30-36); MCV 86.9 fl (81-99); MONOCYTES 8.1 % (0-12); PLATELET COUNT 179 K/uL (140-440); RBC 3.25 M/ul (4.3-5.7); RDW 17.1 (10.5-15.0)
[2024-04-03 10:41] LABS: PARTIAL THROMBOPLASTIN TIME 35.6 Sec (22.9-41.3)
[2024-04-03 10:42] LABS: INR 1.31 (0.80-1.30); PROTIME 15.5 Sec (11.2-14.2)
[2024-04-03] MEDS ORDERED: DEXTROSE 50% 50 ML SYR IV ONE (10:45)
[2024-04-03] MEDS ORDERED: [UNRECOGNIZED DRUG - OTHER] IM ONE (11:00)
[2024-04-03] MEDS ORDERED: [UNRECOGNIZED DRUG - OTHER] IM ONE (11:00)
--- NOTE | 2024-04-03 11:04 | NUR ---
FULL LINEN CHANGE, ADLS COMPLETED, CHG BATH GIVEN. FACE WASHED, LESLIE/FUNEZ CARE COMPLETED. HR AND RR INCREASED WITH ACTIVITY. 4 NURSES AT BEDSIDE TO MANAGE AIRWAY AND LINES. PATIENT PLACED ON WAFFLE MATTRESS. DRS. CHAMBERS AND RAMONITA IN FAMILY ROOM WITH CARDIAC CATH LAB TECHNOLOGIST.
--- NOTE | 2024-04-03 11:16 | NUR ---
ATTENDED GOALS OF CARE MEETING WITH FAMILY. KUSH, SON STEVENSON AND GRANDDAUGHTER PRESENT. DR. CHAMBERS AND DR. SHIPMAN DISCUSSED PT CONDITION AND PROGNOSIS. FAMILY VERIFIED PT DESIRES AND CLARIFIED GOALS OF CARE. CHILD CARE COORDINATOR PROVIDED SUPPORTIVE PRESENCE, FACILITATED COMMUNICATION, PROVIDED PRAYER. FAMILY EXPRESSED GRATITUDE.
--- NOTE | 2024-04-03 11:20 | NUR ---
LABS AND BP REVIEWED WITH DR. CHAMBERS. VERBAL ORDER RECEIVED TO GIVE 250ML BOLUS OF LR.
[2024-04-03] MEDS ORDERED: LACTATED RINGER'S 250 ML IV ONE (11:30)
[2024-04-03] MEDS ORDERED: SODIUM BICARBONATE 50 MEQ/50 ML VIAL IV ONE (11:30)
--- NOTE | 2024-04-03 11:31 | NUR ---
[facility] FORM COMPLETED BY SPOUSE, KUSH, WITH DR. CHAMBERS. FORM FAXED TO [place] [facility], COPY MADE AND PLACED ON CHART. STAFF NOTIFIED THE ORIGINAL IS TO BE SENT WITH PATIENT WHEN DC'D FROM FACILITY.
[2024-04-03] MEDS ORDERED: SODIUM BICARBONATE 50 MEQ in SODIUM CHLORIDE 0.45% 1,000 ML IV SCH (12:15)
--- NOTE | 2024-04-03 13:40 | NUR ---
US RN IN IN ROOM ATTEMPTING MIDLINE.
--- NOTE | 2024-04-03 14:00 | NUR ---
CCU RN CALLED REQUESTING ULTRASOUND IV FOR PT DUE TO POOR ACCESS AND BUE EDEMA. DISCUSSED WITH DR CHAMBERS PLACING A MIDLINE FOR LONGER CATHETER, DR CHAMBERS AGREES, KIRILL RN WITH ME FOR DISCUSSION. PT IS INTUBATED AND UNABLE TO PROVIDE CONSENT, DISCUSSED WITH RN AND , IV ACCESS IS NEEDED TO MAINTAIN MEDICATIONS. CLEANED BEDSIDE TABLE WITH SANI WIPES AND STERILE FIELD SET UP. ASSESSED LEFT UPPER ARM WITH ULTRASOUND AND MEASURED BASILIC VEIN FOR 20 G CATHETER, WILL TAKE UP 35% OF VEIN CHOSEN. SITE CLEANSED WITH CHLORHEXIDINE AND DRAPED MAINTAINING STERILITY. LEFT BASILIC VEIN ACCESSED WITH 20 G POWERGLIDE MIDLINE, GUIDE WIRE DEPLOYED EASILY AND CATHETER FOLLOWED WITHOUT DIFFICULTY, BLOOD RETURN IN CATHETER. SALINE LOCK ATTACHED TO HUB, BLOOD RETURNED AND FLUSHED EASILY. STERILE DRESSING PLACED AND LINE FLUSHED AGAIN WITH 10 ML NS, ABLE TO PALPATE FLUSH AT THE END OF THE CATHETER, NO SWELLING. CATHETER IS 10 CM, 0 CM EXPOSED, AND 28 CM ARM CIRCUMFRENCE. LINE IS SALINE LOCKED, REPORT TO AUGUSTINE FRANCOIS.
--- NOTE | 2024-04-03 15:03 | NUR ---
PATIENT MEDICATED FOR PAIN, SEE EMAR. RT IN ROOM AND DECREASED FIO2 TO 30%. JOANNE DRESSING CHANGED, GAUZE SATURATED WITH BRIGHT RED BLOOD. PIV REMOVED FROM R AC WITH CATHETER INTACT.
[2024-04-03] MEDS ORDERED: FAT EMULSION 20% 500 ML IV SCH (16:00)
[2024-04-03 16:05] LABS: HEMATOCRIT 26.9 % (35.0-50.0); HEMOGLOBIN 9.1 g/dL (12.0-18.0); MCH 29.6 (27-36); MCHC 33.9 g/dl (30-36); MCV 87.1 fl (81-99); PLATELET COUNT 182 K/uL (140-440); RBC 3.08 M/ul (4.3-5.7); RDW 16.7 (10.5-15.0)
[2024-04-03 16:20] LABS: LYMPHOCYTES, MANUAL DIFF 8; MONOCYTES, MANUAL DIFF 3; NEUTROPHILS, MANUAL DIFF 89
--- NOTE | 2024-04-03 17:39 | NUR ---
DISTAL LINE OF CENTRAL LINE ALTEPLASED PER MD CHAMBERS. ALL 3 LINES OF CENTRAL LINE STOPPED WITH BLOOD RETURN YESTERDAY AND MDS AWARE. LINES ALL INFUSE WELL. DISTAL LINE 2MLS PULLED BACK 2 HOUR AFTER ADMINISTRATION AND NO USE OF LINE. BLOOD RETURN BRISK. WASTED 5MLS. FLUSHED AND NOW INFUSING MEDICATIONS. ALTEPLACE PLACED IN PROXIMAL LUMEN AND TAPED AT THSI TIME. WILL REASSESS IN 2 HOURS PER PROTOCOL.
[2024-04-03] MEDS ORDERED: ACETAMINOPHEN 1,000 MG/100 ML VIAL IV PRN (18:15)
--- NOTE | 2024-04-03 18:40 | NUR ---
CATHFLO DRAWN OUT OF PROXIMAL CENTRAL LINE LUMEN. BLOOD DRAWS EASILY. FLUSHED WITH NS AND LUERLOC CHANGED.
--- NOTE | 2024-04-03 19:45 | NUR ---
PATIENT ASSESSMENT COMPLETE, NO NEW CONCERNS FROM SHIFT REPORT.
--- NOTE | 2024-04-03 20:00 | NUR ---
THIS RN AND JANE RN, INTO CLEAN LOOSE/SOFT BM, ADJUST AND CHANGE PATIENT POSITION. PATIENT ADMINISTERED DILAUDID PRN AND LOPRESSOR PRN FOR HR 130/MIN
--- NOTE | 2024-04-03 21:00 | NUR ---
HEART RATE NOW 102/MIN, ART LINE HAS BEEN ZEROED, READING CONSISTENT WITH NON INVASIVE B/P CUFF. PATIENT NOW HAS ZERO RATE ON NO VERBAL PAIN SCALE. R.T. IN TO ROOM TO ASSESS.
[2024-04-03 22:09] LABS: HCO3, BLOOD GAS 19.4 mmol/L (22-26); O2 SATURATION, BLOOD GAS 98.4 % (95.0-100.0); PCO2, BLOOD GAS 32.2 mmHg (35-45); PH, BLOOD GAS 7.39 (7.35-7.45); PO2, BLOOD GAS 90 mmHg (80-100); TOTAL CO2, BLOOD GAS 20.3
[2024-04-03 22:13] LABS: HEMOGLOBIN 8.8 g/dL (12.0-18.0)
[2024-04-03 22:15] LABS: BASOPHILS 0.2 % (0-2); HEMATOCRIT 25.9 % (35.0-50.0); LYMPHOCYTES 2.4 % (24-44); MCH 29.5 (27-36); MCHC 33.9 g/dl (30-36); MONOCYTES 6.1 % (0-12); NEUTROPHILS 91.3 % (39-80); PLATELET COUNT 186 K/uL (140-440); RBC 2.97 M/ul (4.3-5.7)
[2024-04-03 22:25] LABS: ALBUMIN 1.6 g/dL (3.4-5.0); ALBUMIN/GLOBULIN RATIO 0.67 (1.1-2.4); ANION GAP 14.7 (7-21); BILIRUBIN, TOTAL 0.4 ng/dL (0.2-1.0); BUN/CREATININE RATIO 20.53 (6.0-28.6); CREATININE, SERUM 2.63 mg/dL (0.70-1.30); POTASSIUM 3.7 mmol/L (3.5-5.1)
--- NOTE | 2024-04-03 23:10 | NUR ---
PATIENT REPOSITIONED TO FLOAT HIPS WITH PILLOWS.
--- NOTE | 2024-04-03 23:12 | NUR ---
UPDATED ON 2200 LABS NO NEW ORDERS AT THIS TIME.
--- NOTE | 2024-04-03 23:48 | NUR ---
PATIENT REPOSITIONED, ORAL CARE PROVIDED WITH MOISTURIZER IN PACK. EET TUBE POSITIONED CHANGE. PATIENT RESTING RELAXED POSITION.
[2024-04-04] VITALS (25 sets, daily range): BP systolic 92–121; BP diastolic 51–79
--- NOTE | 2024-04-04 02:57 | NUR ---
PATIENT ADMINISTERED PRN DILAUDID PRIOR TO TURNING FOR CLEANING, PATIENT HAD SOFT/LIQUID BM, PATIENT CLEANED, REPOSITIONED TAKING INTO ACCOUNT PATIENT PRECAUTIONS FOR LUMBAR FX. PATIENT TOLERATED WELL. RELAXED POSITION AT THIS TIME. NO NEW CONCERNS AT THIS TIME
--- NOTE | 2024-04-04 04:35 | NUR ---
PATIENT ASSESSMENT COMPLETE, NO NEW CONCERNS, ORAL CARE PROVIDED, EET TUBE POSITION CHANGED, PATIENT REPOSITIONED.
[2024-04-04 05:41] LABS: BASE EXCESS, BLOOD GAS -5.2 mmol/L (-2-2); HCO3, BLOOD GAS 19.5 mmol/L (22-26); O2 SATURATION, BLOOD GAS 98.4 % (95.0-100.0); PCO2, BLOOD GAS 33.5 mmHg (35-45); PH, BLOOD GAS 7.37 (7.35-7.45); PO2, BLOOD GAS 94 mmHg (80-100); TOTAL CO2, BLOOD GAS 20.5
[2024-04-04 05:45] LABS: HEMATOCRIT 25.5 % (35.0-50.0); HEMOGLOBIN 8.6 g/dL (12.0-18.0); MCH 29.4 (27-36); MCHC 33.6 g/dl (30-36); MCV 87.5 fl (81-99); PLATELET COUNT 184 K/uL (140-440); RBC 2.92 M/ul (4.3-5.7); RDW 16.9 (10.5-15.0)
[2024-04-04 05:57] LABS: ALBUMIN 1.6 g/dL (3.4-5.0); ALBUMIN/GLOBULIN RATIO 0.67 (1.1-2.4); ANION GAP 13.9 (7-21); BILIRUBIN, TOTAL 0.6 ng/dL (0.2-1.0); BUN/CREATININE RATIO 22.26 (6.0-28.6); CALCIUM 7.2 mg/dL (8.5-10.1); CREATININE, SERUM 2.47 mg/dL (0.70-1.30); MAGNESIUM 1.9 mg/dL (1.8-2.4); PHOSPHORUS, INORGANIC 5.1 mg/dL (2.5-4.9); POTASSIUM 3.9 mmol/L (3.5-5.1)
[2024-04-04 06:03] LABS: LYMPHOCYTES, MANUAL DIFF 1; MONOCYTES, MANUAL DIFF 3; NEUTROPHILS, MANUAL DIFF 96
--- NOTE | 2024-04-04 06:32 | NUR ---
PATIENT REPOSITIONED, ORAL CARE COMPLETE, ART LINE ZEROED. NO NEW CONCERNS AT THIS TIME.
--- NOTE | 2024-04-04 06:47 | NUR ---
ROUNDED FOR UPDATES, B/P SOLID, TITRATED NOREPINEPHRINE TO 6MCG/MIN. FROM 8MCG/MIN
--- NOTE | 2024-04-04 07:41 | NUR ---
REPORT RECEIVED FROM PRISCILA SCHAFER. VERSED DECRESED TO 4 MG/HR.
--- NOTE | 2024-04-04 08:00 | NUR ---
THIS RN AND AUGUSTINE RN WILL BE RESUMING CARE OF PATIENT. PATIENT REMAINS ON LEVOPHED GTT AND VERSED GTT. TPN/LIPIDS INFUSING. PATIENT VENTILATOR SETTINGS REMAIN UNCHANGED OVERNIGHT. ART LINE IN PLACE.
--- NOTE | 2024-04-04 10:00 | NUR ---
PARTIAL LINEN CHANGE, LESLIE/FUNEZ CARE COMPLETED. BRIEF CHANGE FOR BM. ALLYVN DRESSING ON COCCYX REPLACED. CHG BATH COMPLETED AND TELEMETRY LEADS CHANGED. PATIENT HAD MINIMAL REPONSE TO MOVEMENT. REPOSITIONED WITH PILLOW SUPPORT UNDER BUE AND SIDE. REMAINS ON WAFFLE OVERLAY MATTRESS. VERSED TITRATED DOWN TO 2MG/HR.
[2024-04-04] MEDS ORDERED: SODIUM CHLORIDE IV SCH (10:56)
[2024-04-04] MEDS ORDERED: FLUCONAZOLE IV SCH (10:56)
[2024-04-04] MEDS ORDERED: [UNRECOGNIZED DRUG - OTHER] IV SCH (10:56)
--- NOTE | 2024-04-04 10:56 | NUR ---
PATIENT TOLERATING VERSED TITRATION WELL. LOWER EXTREMITY RESPONSE NOTED WHEN PROVIDING SKIN CARE, PATIENT WITHDREW LEFT FOOT.
[2024-04-04] MEDS ORDERED: ARTIFICIAL TEARS 15 ML BTL OU PRN (11:00)
--- NOTE | 2024-04-04 11:30 | NUR ---
DR. SHIPMAN IN ROOM TO ROUND ON PATIENT.
--- NOTE | 2024-04-04 12:58 | NUR ---
BRIEF CHANGE FOR BM COMPLETED, LINEN CHANGE AND ADLS COMPLETED. TURNED AND REPOSITIONED FOR COMFORT WITH PILLOW SUPPORT. PATIENT TOLERATED FAIR, MINIMAL RESPONSE BUT PATIENT WAS ATTEMPTING TO BITE ON ET TUBE. MEDICATED FOR PAIN. RESTRAINTS FOR ET TUBE AND LINES IN PLACE. ORAL CARE PROVIDED.
--- NOTE | 2024-04-04 13:47 | NUR ---
JOANNE DRESSING CHANGE COMPLETED. GAUZE SATURATED MODERATELY WITH SANGUINOUS DRAINAGE. PATIENT TOLERATED WELL. SITE COVERED WITH 4X4 GAUZE AND TAPE.
--- NOTE | 2024-04-04 14:49 | NUR ---
CENTRAL LINE DRESSING CHANGE COMPLETED. TOLERATED WELL.
--- NOTE | 2024-04-04 16:42 | NUR ---
SMALL AMOUNT OF BRIGHT RED OUTPUT NOTED FROM OG TUBE. SUCTION OFF FOR APPROXIMATELY 15 MIN THEN RESTARTED. PLACED ON CONTINOUS SUCTION TO CLEAR TUBE THEN PLACED IMMEDIATELY BACK TO LIS. DR. CHAMBERS NOTIFIED. OUTPUT NOW CLEAR RAYO IN COLOR. ORAL CARE COMPLETED. MINIMAL RESPONSE FROM PATIENT. VERSED REMAINS OFF AT THIS TIME.
--- NOTE | 2024-04-04 17:22 | NUR ---
ALL LUMENS OF CENTRAL LINE FLUSHED WELL MIDLINE. ALL SITES FLUSH EASILY AND HAVE + BLOOD RETURN. MEDIAL LEURLOC CHANGED AFTER TPN/LIPIDS COMPLETE. NEW BAG OF TPN INFUSING. PATIENT DOES NOT RESPOND TO PAINFUL STIMULI TO BUE, HOWEVER RESPONDS TO STIMULI TO BILATERAL FEET BY WITHDRAWING FEET FROM STIMULI. NO SPONTANEOUS EYE OPENING. NO RESPONSE TO VERBAL STIMULI. VERSED REMAINS OFF AT THIS TIME. SON STEVENSON UPDATED ON PATIENT, PER STEVENSON IF PATIENT NEEDED MORE BLOOD PRODUCTS, IT IS OK TO GIVE.
[2024-04-04 18:13] LABS: RBC 2.73 M/ul (4.3-5.7); RDW 16.8 (10.5-15.0)
[2024-04-04 18:15] LABS: BASOPHILS 0.7 % (0-2); EOSINOPHILS 0.1 % (0-6); HEMATOCRIT 24.1 % (35.0-50.0); LYMPHOCYTES 1.7 % (24-44); MCH 29.2 (27-36); MCHC 33.1 g/dl (30-36); MCV 88.1 fl (81-99); MONOCYTES 5.4 % (0-12); NEUTROPHILS 92.1 % (39-80); PLATELET COUNT 180 K/uL (140-440)
--- NOTE | 2024-04-04 18:45 | NUR ---
RT IN TO CHECK ETT PLACEMENT D/T APPEARING TO BE 1 CM OFF FROM PRIOR ASSESSMENT. RT IN AT THE BEDSIDE AND ADJUSTED AND CHECKED CUFF PRESSURES. NO VENTILATOR CHANGES NOTED. BILATERAL AIRMOVEMENT PRESENT. PATIENT ETT 27 AT THE [facility]. PATIENT TURNED AND REPOSITIONED WITH PILLOW SUPPORT. PATIENT SCDS IN PLACE. HEEL PROTECTORS WITH FOOT DROP SUPPORT ADDED. PATIENT DID OPEN EYES WITH MOVEMENT BUT EYES WERE BOTH ROLLED BACK AND TO THE RIGHT. PATIENT NOW RESTING ON THE LEFT SIDE. BOTH RESTAINTS IN PLACE.
--- NOTE | 2024-04-04 18:58 | NUR ---
DR CHAMBERS NOTIFIED OF ET TUBE ADJUSTMENT. ORDER RECEIVED FOR PCXR FOR PLACEMENT. UPDATED PROVIDER ON CBC RESULTS, NO ORDER TO TRANSFUSE AT THIS TIME.
[2024-04-04] MEDS ORDERED: propofoL 100 ML IV SCH (19:00)
--- NOTE | 2024-04-04 19:30 | NUR ---
REPORT RECEIVED FROM DAY SHIFT RN. THIS RN AND HANH RN WILL BE TAKING OVER CARE OF PATIENT THIS SHIFT. ALL IV LINES CHECKS, FUNEZ DRAINAING YELLOW URINE. ART LINE WNL. VENT SETTINGS REMAIN THE SAME FROM PREVIOUS SHIFT.
--- NOTE | 2024-04-04 20:00 | NUR ---
TO UNIT TO ROUND, UPDATED ON PATIENT STATUS, MEDICATIONS, LABS, AND CXRAY. SAID HE IS FINE WITH STARTING PROPOFOL FOR PATIENT TO KEEP HIM COMFORTABLE ON THE VENTILATOR.
--- NOTE | 2024-04-04 20:30 | NUR ---
PROPOFOL STARTED, LEVOPHED TITRATED UP DUE TO SOFT B/P.
--- NOTE | 2024-04-04 20:30 | NUR ---
RN IN ROOM WITH HANH RN TO COMPLETE ASSESSMENT. PUPILS NOTED TO BE PIN POINT AND FIXED. ARTIFICIAL TEARS APPLIED TO BILAT EYES FOR COMFORT. LUNGS WITH RONCHI NOTED TO UPPER LOBES, DIMINISHED IN BILATERAL LOWER LOBES. NOTED SUBSTERNAL RETRACTION WITH INSPIRATIONS. BOWEL TONES ACTIVE X 4 QUADRANTS. PEDAL PULSES PALPABLE HOWEVER FAINT. SURGICAL INCISION REMAINS WELL APPROXIMATED CLOSED WITH ANGELIQUE AND ESVIN WITH NO NOTED DRAINAGE. DRESSING TO JOANNE DRAIN WITH SEROSANG DRAINAGE NOTED. PATIENT WITH GENERALIZED EDEMA THROUGHOUT BODY. SCD'S IN PLACE, FOOT DROP PREVENTION BOOTS IN PLACE TO BILAT. FEET. HS BLOOD SUGAR TAKEN AND HS INSULIN ADMINISTERED. VENT SETTINGS REMAIN UNCHANGED. SOFT RESTRAINTS REMAIN IN PLACE AND WNL. ALL IV LINES WNL. ART LINE WNL.
--- NOTE | 2024-04-04 21:22 | NUR ---
LOPRESSOR PRN ADMINISTERED FOR HEART RATES 120-130/MIN
--- NOTE | 2024-04-04 22:00 | NUR ---
PATIENT REPOSITIONED IN BED. DRESSING TO JOANNE DRAIN CHANGED. SEROSANG DRAINAGE NOTED. JOANNE DRAIN EMPTIED. ORAL CARE PROVIDED. ALL IV LINE WNL. VENT SETTINGS REMAIN THE SAME.
--- NOTE | 2024-04-04 23:30 | NUR ---
PATIENT CARES PROVIDED, ORAL CARE, SUCTION, REPOSITIONED, LINES AND TUBES ASSESSED. PATIENT NOTED TO HAVE STOOL PRESENT, PATIENT ROLLED TO CLEAN, PATIENT SPONTANEOUSLY OPENED HIS EYES AND GRIMACED. ONCE BACK TO REST PATIENT RESTING RELAXED BODY POSITION AND FACIAL MUSCLES. ASSESSMENT COMPLETE, URINE OUT DOCUMENTED FROM FUNEZ. NO CHANGE TO VENT SETTINGS.
[2024-04-05] VITALS (35 sets, daily range): BP systolic 83–135; BP diastolic 40–83
--- NOTE | 2024-04-05 00:35 | NUR ---
PATIENT VENT SUCTIONED WITH Shekhar RODAS AND CARMEN FRANCOIS ORIENT.
--- NOTE | 2024-04-05 00:38 | NUR ---
DEEP VENT SUCTIONING WITH RT CLARK. ET TUBE ANGLE REPOSITIONED AT THE LIPS TO PREVENT SKIN BREAKDOWN. PATIENT POSITION CHANGED, PILLOWS PLACED UNDER KNEES ARMS REPOSITIONED. ALL LINES AND DRAINS ASSESSED, WNL.
--- NOTE | 2024-04-05 01:19 | NUR ---
PATIENT MORE TACHYCARDIA UP TO 110-120'S, WITH INCREASE IN PVC, PRN DILAUDID ADMINSTERED FOR PAIN 2/10 ON NON VERBAL PAIN SCALE.
--- NOTE | 2024-04-05 02:15 | NUR ---
ORAL CARE AND ORAL SUCTIONING PROVIDED. PATIENT REPOSITIONED IN BED. BLOOD SUAGR TAKEN AND INSULIN ADMINISTERED.
--- NOTE | 2024-04-05 03:24 | NUR ---
LOPRESSOR ADMINISTERED FOR INCREASED HR 120/MIN.
[2024-04-05 05:09] LABS: BASE EXCESS, BLOOD GAS -3.2 mmol/L (-2-2); HCO3, BLOOD GAS 21.1 mmol/L (22-26); O2 SATURATION, BLOOD GAS 99.1 % (95.0-100.0); PCO2, BLOOD GAS 33.6 mmHg (35-45); PH, BLOOD GAS 7.41 (7.35-7.45); PO2, BLOOD GAS 99 mmHg (80-100); TOTAL CO2, BLOOD GAS 22.1
[2024-04-05 05:11] LABS: BASOPHILS 0.6 % (0-2); EOSINOPHILS 0.1 % (0-6); HEMATOCRIT 24.4 % (35.0-50.0); LYMPHOCYTES 1.5 % (24-44); MCH 29.1 (27-36); MCHC 32.8 g/dl (30-36); MCV 88.5 fl (81-99); MONOCYTES 6.5 % (0-12); NEUTROPHILS 91.3 % (39-80); PLATELET COUNT 195 K/uL (140-440); RBC 2.76 M/ul (4.3-5.7); RDW 16.9 (10.5-15.0)
[2024-04-05 05:23] LABS: PARTIAL THROMBOPLASTIN TIME 27.7 Sec (22.9-41.3)
[2024-04-05 05:24] LABS: INR 1.04 (0.80-1.30); PROTIME 12.9 Sec (11.2-14.2)
[2024-04-05 05:30] LABS: ALBUMIN 1.6 g/dL (3.4-5.0); ALBUMIN/GLOBULIN RATIO 0.64 (1.1-2.4); BILIRUBIN, TOTAL 0.5 ng/dL (0.2-1.0); BUN/CREATININE RATIO 30.81 (6.0-28.6); CALCIUM 7.6 mg/dL (8.5-10.1); CREATININE, SERUM 1.85 mg/dL (0.70-1.30); PROTEIN, TOTAL 4.1 g/dL (6.4-8.2)
--- NOTE | 2024-04-05 05:30 | NUR ---
AM PATIENT CARE. PATIENT NOTED TO HAVE STOOL IN DEPENDS, PATIENT WIPED DOWN WITH CHLORHEXIDINE WIPES PER POLICY, INTUBATED WITH CENTRAL LINE. PATIENT TURNED TO CLEAN BACK SIDE, NEW ALLEVYN/BORDER FOAM DRESSING PLACED TO PATIENT COCCYX/SACRAL AREA DUE TO SMALL RED AREAS, BLANCHABLE, NOT OPEN SKIN BREAK DOWN, PROVIDING PROTECTION FROM FURTHER BREAK DOWN, PATIENT ALSO HAS WAFFLE MATTRESS ON HIS BED. PATIENT REPOSITIONED, PILLOWS PLACED FOR COMFORT AND TO PROTECT BONY PROMINENCES. PADDED BOOTS PLACED TO HELP PREVENT HEEL BREAKDOWN AND FOOT DROP. AM ASSESSMENT COMPLETE, LABS DRAWN FROM ART LINE, ART LINE THEN FLUSHED AND ZEROED. EYE DROPS ADMINISTERED, ORAL CARE PROVIDED WITH SUCTIONING. FUNEZ CARE PROVIDED PER POLICY. TUBES AND LINES ALL CHECKED AND SECURED. PATIENT OPENED HIS EYES WHEN LOG ROLLED FOR CLEANING, HE ALSO BIT DOWN WITH ORAL CARE.
[2024-04-05] MEDS ORDERED: AMLODIPINE BESY10 MG PO (08:14)
[2024-04-05] MEDS ORDERED: TAMSULOSIN HCL0.4 MG PO (08:15)
--- NOTE | 2024-04-05 08:28 | NUR ---
REPORT REC'D FROM LENS FINISHER AND RESUMED PATIENT CARE. ASSESSMENT COMPLETE. WORKING ON TITRATING DOWN LEVOPHED GTT - CURRENTLY DOWN TO 4 MCG/MIN. PROPOFOL CURRENTLY AT 8 MCG/KG/MIN. PT CURRENTLY RECEIVING TPN AT 83.7 ML/HR, MEROPENEM AT 33 ML/HR, AND ONCE THAT IS FINISHED, D5LR WILL RESUME FOR A TOTAL IVF VOLUME OF 125 ML/HR. PUPILS ARE PINPOINT BUT REACTIVE. 175 ML YELLOW URINE DRAINED AT 0800. 2 ML OF SANGINGOUS DRAINAGED EMPTIED FROM LEFT SIDE JOANNE DRAIN. LUQ INCISION IS C/D/I WITH ANGELIQUE- NO DRAINGE NOTED. FUNEZ CATH CARE PROVIDED. PT NOT RESPONDING TO STIMULI AND NO GAG REFLEX PRESENT WHEN PROVIDING ORAL CARE. OG TUBE PUTTING OUT MINIMAL DRAINAGE AT THIS TIME. PT'S SON STEVENSON HAS CALLED AND GIVEN AN UPDATE THIS AM - STATES HE WILL CALL AGAIN THIS EVENING. HIS NUMBER IS [phone].
--- NOTE | 2024-04-05 09:33 | NUR ---
PATIENT TURNED TO LEFT SIDE AND POSITIONED WITH PILLOWS. ATTENDS CHANGED THEY HAD SMALL AMOUNT OF STOOL IN THEM. PT TOLERATED THIS TURNING WELL AND ONLY OPENS EYES, BUT DOES NOT MAKE EYE CONTACT. RESTRAINTS REMAIN IN PLACE BILATERALLY TO PROTECT ETT. PROPOFOL CURRENTLY AT 6 MCG/KG/MIN AND LEVOPHED AT 4 MCG/MIN.
--- NOTE | 2024-04-05 12:30 | NUR ---
PROPOFOL AND LEVOPHED ARE NOW OFF, AND PATIENT IS TOLERATING WELL. NBP 111/72 (84) AND ART LINE READING 116/50 (70). URINE OUTPUT OVER THE LAST 4 HRS IF 310 ML. JOANNE DRAIN HAD 12 ML OF SANGIOUS FLUID WHICH IS NORMAL PER DR. SHIPMAN. PT TO HAVE TPN AGAIN TODAY. RASS IS NOW -2 AND PT NOTED TO BE OPENING EYES SOME, BUT NOT MAINTAINING EYE CONTACT. ORAL CARE PROVIDED. VENT SETTINGS REMAIN UNCHANGED- VC/AC 24, VT 500, PEEP 5, FI02 28%. PT NOT FOLLOWING COMMANDS EITHER BUT WILL CONTINUE TO ATTEMPT TO ASSESS NEURO STATUS SEDATION WEARS OFF.
[2024-04-05] MEDS ORDERED: ACETAMINOPHEN 1,000 MG/100 ML VIAL IV PRN (13:00)
--- NOTE | 2024-04-05 13:06 | NUR ---
PRN IV TYLENOL GIVEN FOR SIGNS OF DISCOMFORT. PT IS SLIGHTLY OVERBREATHIGN THE VENTILATOR, BP IS MORE ELEVATED THAN IT HAS BEEN. SP02 IS 97% ON VENT AND VENT SETTINGS REMAIN UNCHANGED. PT REPOSITIONED TO SUPINE WITH PILLOWS UNDER HIPS FOR PROTECTION OF HIS COCCYX AREA. WILL CONTINUE TO TURN Q2 AND PROVIDE FOR COMFORT.
[2024-04-05] MEDS ORDERED: MEROPENEM 500 MG in SODIUM CHLORIDE 0.9% 100 ML IV SCH (14:04)
--- NOTE | 2024-04-05 14:07 | NUR ---
NOTED IN OG TUBE THAT CONTENTS ARE MORE RED THAN BEFORE, APPEARING BLOOD LIKE. OG TUBE SUCTION PAUSED AND DR. SHIPMAN TO BE CALLED WITH THESE FINDINGS. SO FAR TODAY, PATIENT HAS HAD ABOUT 115 ML OF OG FLUID. DR. CHAMBERS IN CCU AND NOTIFIED OF THESE FINDINGS. PER DR. CHAMBERS, OKAY TO HOLD SUCTION FOR A WHILE AND THEN RESUME INTERMITTENT SUCTIONING.
[2024-04-05 18:24] LABS: HEMOGLOBIN 8.1 g/dL (12.0-18.0); MCH 29.4 (27-36)
[2024-04-05 18:27] LABS: EOSINOPHILS 0.1 % (0-6); RBC 2.77 M/ul (4.3-5.7)
[2024-04-05] MEDS ORDERED: LACTATED RINGER'S 1,000 ML IV SCH (18:30)
[2024-04-05 18:31] LABS: BASOPHILS 0.2 % (0-2); HEMATOCRIT 24.5 % (35.0-50.0); LYMPHOCYTES 1.4 % (24-44); MCHC 33.2 g/dl (30-36); MCV 88.5 fl (81-99); MONOCYTES 6.7 % (0-12); NEUTROPHILS 91.6 % (39-80); PLATELET COUNT 221 K/uL (140-440); RDW 16.7 (10.5-15.0)
--- NOTE | 2024-04-05 18:34 | NUR ---
PRN PAIN MEDICATION GIVEN FOR SIGNS OF DISCOMFORT. PATIENT MEDICATED PER EMAR. PT REMAINS OFF PROPOFOL, AND RASS IS BETWEEN -3 TO A -2. VENT SETTINGS REMAIN UNCHANGED FROM THIS AM - VC/AC 24, VT 500, PEEP 5, FI02 28%. SBT/SAT TO RESUME TOMORROW AM. PT'S SON STEVENSON CALLED THIS EVENING AGAIN AND GIVEN ANOTHER UPDATE BY [employer] DEVELOPER. CBC PENDING THIS EVENING. OG TUBE NOW HAVING DARK GREEN BILE LIKE MATERIAL AND NO LONGER MAZIN RED BLOOD APPEARANCE.
--- NOTE | 2024-04-05 19:37 | NUR ---
ROUNDED WITH TEAGAN RN IN PATIENT TO CHECK IV LINES, TUBES/DRAINS. PATIENT IS RESTING IN BED EYES CLOSED, NO DISTRESS NOTED, CLARK Baer.Bhupendra ADJUSTED EET AND SECUREMENTS.
--- NOTE | 2024-04-05 20:25 | NUR ---
PATIENT CARES PROVIDED INCLUDING, ORAL CARE, ORAL SUCTION, VENT SUCTION, ASSESSMENT COMPLETE.
--- NOTE | 2024-04-05 21:00 | NUR ---
ROUNDED IN PATIENT ROOM, AGREED WITH STAFF THAT PATIENT WORK OF BREATHING HAS INCREASED, AND NEED TO START PROPOFOL. PATIENT ADMINISTERED DILAUDID PRN, AND PROPOFOL STARTED AT 10MCG/KG/MIN WILL TITRATE INDICATED, OK WITH -3 RASS FOR COMFORT OVER NIGHT, THEN ATTEMPT TO TITRATE IN AM.
--- NOTE | 2024-04-05 23:25 | NUR ---
PATIENT CARES, ORAL CARE, SUCTIONING ORAL AND VENT, NOTED MODERATE AMOUNT OF SECRETIONS BOTH ORAL AND WHILE SUCTIONING WITH VENT SUCTION. PATIENT REPOSITIONED, TUBES AND LINES WNL.
[2024-04-06] VITALS (31 sets, daily range): BP systolic 98–167; BP diastolic 57–89
--- NOTE | 2024-04-06 00:30 | NUR ---
PATIENT CARE, NOTED PATIENT HAD STOOL IN DEPENDS, FOUR STAFF MEMBERS TO ASSIST IN LOG ROLE AND MONITOR AIRWAY. PATIENT EYES OPENED WITH CARES ALL CARES VERBALIZED TO PATIENT PROVIDED, NEW ALLEVYN PLACED TO COCCYX/SACRAL DUE TO ANGELO AREAS, NO OPEN SKIN AREAS. PATIENT THEN REPOSITIONED, ORAL CARE PROVIDED, PATIENT NOTED TO HAVE HEART RATE UP TO 140/MIN NONSUSTAINED, CONSIDERED ADMINSITERING LOPRESSOR PRN WHEN HEART RATE RETURNED TO 90-100'S/MIN. HE WAS NOTEABLE AGITATED PER FACIAL FEATURES, RAISED AND GRIMACE EYE BROWSE. INCREASE WORK OF BREATHING, AND INCREASE HEART RATE, PRN DILAUDID ADMINISTERED.
--- NOTE | 2024-04-06 03:21 | NUR ---
ORAL CARE AND SUCTIONING PROVIDED BOTH ORAL AND VENT SUCTIONING. PATIENT TOLERATED WELL, 1/10 PAIN ON NONVERBAL PAIN SCALE.
[2024-04-06 05:09] LABS: BASE EXCESS, BLOOD GAS -0.3 mmol/L (-2-2); HCO3, BLOOD GAS 23.6 mmol/L (22-26); O2 SATURATION, BLOOD GAS 97.6 % (95.0-100.0); PCO2, BLOOD GAS 34.1 mmHg (35-45); PH, BLOOD GAS 7.45 (7.35-7.45); PO2, BLOOD GAS 80 mmHg (80-100); TOTAL CO2, BLOOD GAS 24.6
[2024-04-06 05:28] LABS: HEMOGLOBIN 7.7 g/dL (12.0-18.0); MCV 88.6 fl (81-99)
[2024-04-06 05:31] LABS: ALBUMIN 1.6 g/dL (3.4-5.0); ALBUMIN/GLOBULIN RATIO 0.62 (1.1-2.4); ANION GAP 12.3 (7-21); BILIRUBIN, TOTAL 0.8 ng/dL (0.2-1.0); BUN/CREATININE RATIO 39.83 (6.0-28.6); CALCIUM 7.8 mg/dL (8.5-10.1); CHOLESTEROL/HDL RATIO 1.8; CREATININE, SERUM 1.23 mg/dL (0.70-1.30); HEMATOCRIT 22.7 % (35.0-50.0); MAGNESIUM 1.7 mg/dL (1.8-2.4); MCH 30.2 (27-36); PLATELET COUNT 238 K/uL (140-440); POTASSIUM 4.3 mmol/L (3.5-5.1); PROTEIN, TOTAL 4.2 g/dL (6.4-8.2); RBC 2.57 M/ul (4.3-5.7); RDW 16.9 (10.5-15.0)
[2024-04-06 05:35] LABS: BANDS, MANUAL DIFF 2; EOSINOPHILS, MANUAL DIFF 1; LYMPHOCYTES, MANUAL DIFF 4; MONOCYTES, MANUAL DIFF 6; NEUTROPHILS, MANUAL DIFF 87
[2024-04-06 05:41] LABS: PARTIAL THROMBOPLASTIN TIME 29.9 Sec (22.9-41.3)
[2024-04-06 05:42] LABS: INR 1.18 (0.80-1.30); PROTIME 14.3 Sec (11.2-14.2)
--- NOTE | 2024-04-06 06:31 | NUR ---
PATIENT LOG ROLLED WITH FOUR STAFF MEMBERS TO INCLUDING Shekhar RODAS TO MAINTAIN EET TUBE. PATIENT TOLERATEED FAIR, HE OPENED HIS EYES AND GRIMACED/SCOWLED WITH EYE BROWS. PATIENT HAD BEEN PRE-MEDICATED WITH DILAUDID PRN BEFORE ROLLING PATIENT TO CLEAN STOOL. PATIENT IS OFF OF LEVOPHED, V/S STABLE, PATIENT HAS HAD CHLORHEXIDINE, FUNEZ CARE PROVIDED PER POLICY WITH [employer]. HE HAS BEEN PROVIDED ORAL CARE AND SUCTION Q2 HOURS AND PRN, HE TURN Q2 AND PRN FOR SKIN PROTECTION. JOANNE DRAIN DRESSING CHANGED DUE TO SATURATION WITH SEROUSSANGUINEOUS-SEROUS ALSO JOANNE DRAIN CONTINUES TO HAVE OUTPUT OF SEROUS DRAINAGE. NEW ALLEVYN PLACED OVERNIGHT TO COCCYX/SACRAL.
[2024-04-06] MEDS ORDERED: MAGNESIUM SULFATE 2 GM/50 ML BAG IV ONE (07:30)
--- NOTE | 2024-04-06 07:51 | NUR ---
REPORT RECEIVED FROM PRISCILA SCHAFER. DR. SHIPMAN IN TO ROUND ON PATIENT. VENT SETTINGS REMAIN AT FIO2 28%, TV 500, RR 24 AND PEEP 5. PROPOFOL OFF AT 0733. PATIENT ATTEMPTS TO OPEN EYES TO STIMULI DURING ASSESSMENT. SOFT RESTRAINTS IN PLACE FOR ET TUBE AND LINE PROTECTION.
[2024-04-06] MEDS ORDERED: PHYTONADIONE 10 MG/ML AMP SUB-Q SCH (09:00)
[2024-04-06] MEDS ORDERED: [UNRECOGNIZED DRUG - OTHER] IV SCH (09:00)
[2024-04-06] MEDS ORDERED: FLUCONAZOLE IV SCH (09:00)
[2024-04-06] MEDS ORDERED: SODIUM CHLORIDE IV SCH (09:00)
--- NOTE | 2024-04-06 09:05 | NUR ---
PATIENT TOLERATING CPAP WELL, RR 22. OPENS EYES TO VERBAL DIRECTION. SQUEEZES RIGHT HAND WHEN DIRECTED, NO SQUEEZE FROM LEFT.
--- NOTE | 2024-04-06 10:54 | NUR ---
PICC RNS IN ROOM FOR PLACEMENT. PATIENT MEDICATED FOR PAIN. REMAINS OFF SEDATION AND ON CPAP MODE ON VENT, RR 23, O2 SAT 94% FIO2 28%.
--- NOTE | 2024-04-06 11:20 | NUR ---
PICC LINE INSERTION DR CHAMBERS REQUESTED PICC LINE PLACEMENT TO ALLOW REMOVAL OF FEMORAL CENTRAL LINE. PT HAS MIDLINE IN LEFT UPPER ARM, RIGHT UPPER ARM VEINS ASSESSED. BRACHIAL AND BASILIC VEINS IDENTIFIED, BASILIC VEIN CHOSEN DUE TO SIZE. CATHETER TO TAKE UP APPROX 31% OF VEIN PER SITE JEREMIAH 8, INITIAL IV START MISSED BY THIS RN, VEIN ACCESSED ABOVE SITE AT A LARGER DIAMETETER. DARK RED, NON PULSATILE BLOOD RETURNED. 20 G IV CATHETER USED TO ACCESS VEIN, GUIDE WIRE, INTRODUCER AND PICC ALL INSERTED EASILY. GUIDE WIRE REMOVED AND INTACT. PICC SECURED AND DRESSED. UNABLE TO USE ECG LEADS FOR PLACEMENT DUE TO A-FIB. CHEST XRAY PERFORMED AND END OF CATHETER TERMINATES IN THE RIGHT ATRIUM, NO CHANGE IN PT RHYTHM ON BALANCE ENGINEER. CATHETER PULLED BACK 2 CM AND REDRESSED USING STERILE TECHNIQUE. XRAY SHOWS CATHETER ENDING IN CAJ AND CATHETER READY TO USE. PICC STYLET REMOVED AND INTACT. BOTH LUMENS RETURN BLOOD AND FLUSHED WITH 10 ML NS. AUGUSTINE FRANCOIS AT BEDSIDE FOR PROCEDURE AND UPDATED ON LINE STATUS.
--- NOTE | 2024-04-06 11:52 | NUR ---
PICC LINE INSERTED. PATIENT TOLERATED WELL. POST PLACEMENT XRY COMPLETED. AWAITING RADIOLOGY READ.
--- NOTE | 2024-04-06 12:15 | NUR ---
PATIENT EXTUBATED BY RT. IMMEDIATALY PLACED ON 3L NC. PATIENT DIRECTED TO COUGH AND SUCTIONING PROVIDED. WEAK COUGH NOTED. NO WHEEZING AUSCULTATED. LUNG AND GLOTTAL SOUNDS COURSE. PATIENT ENCOURAGED TO CONTINUE TO CDB. PATIENT'S SON UPDATED BY PRISCILA CANDELARIA. TOLERATED EXTUBATION FAIR.
--- NOTE | 2024-04-06 12:21 | NUR ---
TPN continues for day 4 today. TPN providing an average of 2,188 calories and 100 gm protein per 24 hours. This formulation continues to meet patient's calorie and protein needs (25 kavita/kg CBW and 1.2 gm Pro/kg CBW). Electrolytes are WNL. POC Glucose indicates blood glucose is in good control. No changes to TPN recommended at this time. RD will follow up in 3-5 days.
--- NOTE | 2024-04-06 13:23 | NUR ---
VISITED DURING SPIRITUAL CARE ROUNDS. PT RECEIVING NURSING CARE. DID NOT INTERRUPT. PROVIDED PRAYER.
--- NOTE | 2024-04-06 13:27 | NUR ---
PATIENT BATHED WITH CHG WIPES, LESLIE/FUNEZ CARE PROVIDED. CLEAN LINEN AND GOWN PLACED. BRIEF REPLACED FOR SMEAR OF BM. ALLYVN DRESSING CDI ON COCCYX. ALLYVN DRESSING PLACED OVER RIGHT NICOLE. SCDS ON AND FEET PLACED IN BILAT FOOT DROP PROTECTION BOOTS. TOLERATED FAIR. MIDLINE AND ART LINE REMOVED. PATIENT ON 3L NC WITH RESPIRATORY RATE 24-30. ENCOURGING CDB.
[2024-04-06] MEDS ORDERED: MEROPENEM 500 MG in SODIUM CHLORIDE 0.9% 100 ML IV SCH (14:00)
--- NOTE | 2024-04-06 16:49 | NUR ---
TPN AND LIPIDS INFUSING. VS AND ASSESSMENT CHARTED. PATIENT RESTING IN BED. ATTEMPTING TO SPEAK BUT SPEACH REMAINS GARBLED POST INTUBATION. ORAL CARE PROVIDED. TOLERATED FAIR. ENCOURAGED TO CDB, WEAK COUGH NOTED.
--- NOTE | 2024-04-06 17:28 | NUR ---
PATIENT RESPONDS "YES" WHEN ASKED IF HE WAS IN PAIN BUT UNABLE TO RATE OR VERBALIZE NUMBER OR QUALITY. MEDICATED FOR PAIN PER EMAR.
[2024-04-06 18:18] LABS: BASOPHILS 0.1 % (0-2); EOSINOPHILS 0.3 % (0-6); HEMATOCRIT 26.5 % (35.0-50.0); HEMOGLOBIN 8.8 g/dL (12.0-18.0); LYMPHOCYTES 1.5 % (24-44); MCH 29.5 (27-36); MCHC 33.4 g/dl (30-36); MCV 88.5 fl (81-99); MONOCYTES 8.5 % (0-12); NEUTROPHILS 89.6 % (39-80); PLATELET COUNT 296 K/uL (140-440); RBC 2.99 M/ul (4.3-5.7); RDW 16.9 (10.5-15.0)
--- NOTE | 2024-04-06 18:18 | NUR ---
CENTRAL LINE REMOVED WITHOUT DIFFICULTY. PRESSURE DRESSING APPLIED AFTER MANUAL PRESSURE HELD. PATIENT TOLERATED WELL. BRIEF CHANGED FOR INCONTINENCE OF STOOL. REPOSITIONED TO RIGHT SIDE WITH PILLOW SUPPORT. ALLYVN PLACED ON LEFT TORSO, AREA OF REDNESS NOTED FROM DRESSING TAPE. JOANNE DRESSING MODERATELY SATURATED WITH SANGIUNOUS DRAINING. DRESSING CHANGED. CALL LIGHT IN REACH, BED IN LOWEST AND LOCKED POSITION. CALL LIGHT IN REACH.
--- NOTE | 2024-04-06 19:45 | NUR ---
SHIFT CHANGE, ROUNDING, SUCTION PROVIDED, PATIENT IS ALERT TO THIS RN , HE ATTEMPTS TO SPEAK, IS NOT UNDERSTANDABLE AT THIS TIME.
--- NOTE | 2024-04-06 20:10 | NUR ---
PATIENT ROUNDING, ASSESSMENT HAS BEEN COMPLETE, PATIENT SCORED 6/10 ON NONVERBAL PAIN SCALE, ADMINISTERED 1MG IV DILAUDID PRN. AFTER ADMINISTRATION PATIENT NOTED TO RELAX BODY POSITION AND BREATHING LESS LABORED, HEART RATE IMPROVED. HE IS LESS AGITATED, NO LONGER APPEARS DESPERATE TO CONTINUE TO TRY TO COMMMUNICATE. HS MEDICATIONS ADMINISTERED, BLOOD SUGAR 122, NO INSULIN REQUIRED. VERBALIZED WITH PATIENT CARES OVER STAY FOR REORIENTATION AND CARE PLAN GOING FORWARD, PATIENT NODDED "YES" UNABLE TO FURTHER ASSESS PATIENT UNDERSTANDING OF EDUCATION.
--- NOTE | 2024-04-06 21:03 | NUR ---
PATIENT ROUNDING, PATIENT ALERT TO RN AT BEDSIDE, SUCTION PROVIDED PATIENT HAS AUDIBLE RALES FROM BEDSIDE, PATIENT BITES DOWN ON BEDSIDE SUCTION DAPHNENRUCHI, UNABLE TO PROVIDED THOROUGH SUCTIONING. PATIENT ATTEMPTS TO SPEAK, GARBLED.
--- NOTE | 2024-04-06 21:13 | NUR ---
PATIENT REPOSITIONED AT THIS TIME, PATIENT ATTEMPTS TO SPEAK, VOICE IS GARBLED, NOT UNDERSTANDABLE TO STAFF. PATIENT IN DIRECT VIEW OF NURSES STATION AND ROUNDING FREQUENT, HE IS ON CONTINUOUS TELEMETRY, CARDIAC MONITORING, V/S STABLE.
--- NOTE | 2024-04-06 21:40 | NUR ---
PATIENT PROVIDED DEEP ORAL SUCTIONING WITH Shekhar MOREAU AND THIS RN, EXPLAINED TO PATIENT PLAN FOR SUCTIONING, HE CLEARLY SAID "OK", PRIETO WAS ABLE TO SUCTION 100ML OF VARIOUS THICKNESS SECRETIONS INTO CANISTER. PATIENT TOLERATED FAIR, HE MAINTAINED OXYGEN SATURATION OF 93% AND GREATER THROUGHOUT THE PROCEDURE.
--- NOTE | 2024-04-06 22:24 | NUR ---
PATIENT ADMINISTERED DILAUDID PRN FOR PAIN 6/10 PER NONVERBAL PAIN SCALE. LOPRESSOR PRN ADMINISTERED FOR B/P 159/85 AND HEART RATE 115/MIN. HE CONTINUES TO TRY TO SPEAK GARBLED NOT UNDERSTANDABLE TO STAFF.
--- NOTE | 2024-04-06 22:50 | NUR ---
THREE STAFF MEMBERS INTO PATIENT ROOM TO ASSIST IN LOG ROLLING PATIENT FOR CLEANING LOOSE MEDIUM BM, NEW ALLEVYN PLACED TO SACRAL AREA PATIENT HAS HAD RED AREAS NOW CENTER RED AREA NOTED INTACT BLISTER APPROXIMATELY 1.25 CM, WILL ORDER WOUND RN CONSULT TO ASSESS. PATIENT REPOSITIONED FOR COMFORT.
--- NOTE | 2024-04-07 00:20 | NUR ---
PATIENT CONTNINUES TO BE RESTLESS AND MOANING OUT, TRYING TO SHIFT AROUND IN BED. PATIENT RATES 6-8/10 PAIN PER NONVERBAL PAIN SCALE. DILAUDID PRN ADMINISTERED AT THIS TIME. ATTEMPTS TO REORIENT PATIENT UNABLE TO ASSESS PATIENT ORIENTATION, HE IS COUGHING OCCASSIONALLY NONPRODUCTIVE, HIS PAIN/DISTRESS INCREASES WITH COUGHING AND ANY MOVEMENT.
[2024-04-07 00:28] VITALS: BP 145/77
--- NOTE | 2024-04-07 00:46 | NUR ---
PATIENT PROVIDED DEEP ORAL SUCTIONING PER Shekhar MOREAU, AND THIS RN AT BEDSIDE TO ASSIST, ABLE TO SUCTION LARGE AMOUNT OF THICK SUCRETIONS. PATIENT TOLERATED FAIR.
[2024-04-07] MEDS ORDERED: LORazepam 2 MG/ML VIAL IV PRN (02:15)
[2024-04-07] MEDS ORDERED: GLYCOPYRROLATE 1 MG/5 ML MDV SUB-Q ONE (02:15)
[2024-04-07] MEDS ORDERED: HYDROmorphone HCL 2 MG/ML VIAL IV PRN (02:15)
[2024-04-07] MEDS ORDERED: SCOPOLAMINE 1 MG/3 DAYS PATCH 1 EACH TDSY ONE (02:17)
[2024-04-07] MEDS ORDERED: MORPHINE SULFATE 4 MG/ML VIAL IV PRN (02:45)
--- NOTE | 2024-04-07 03:00 | NUR ---
0140 PATIENT NOTED TO HAVE INCREASE WORK OF BREATHING, INCREASE OXYGEN DEMANDS. FIXED GAZE, ATTEMPTED TO INSTRUCT PATIENT TO TAKE DEEP BREATHS, LOOK AT THIS RN, PATIENT WOULD NOT/COULD NOT FOLLOW DIRECTION. Shekhar MOREAU INTO ASSIST WITH THIS RN, EXTRUSION PROCESS OPERATOR МАРИЯ FRANCOIS INTO ASSIST, HIMA RN ALSO BACK FROM LUNCH TO ASSIST. RAPID RESPONSE CALLED AND CALLED. 0145 МАРИЯ EXTRUSION PROCESS OPERATOR RN ATTEMPTED TO CALL STEVENSON, CALL WENT TO VOICE MAIL, EXTRUSION PROCESS OPERATOR THEN CALLED PATIENT'S SPOUSE, SHE ANSWERED AND CONTACTED HER SON TO CALL US BACK. 0149 STEVENSON CALLED BACK AND SPOKE TO МАРИЯ EXTRUSION PROCESS OPERATOR AND THIS RN EXPLAINED THAT PATIENT HAS DETERRIORATED RESPIRATORY STATUS AND CARE TEAM NEEDS FURTHER DIRECTION TO WHETHER TO RE-INTUBATE OR MAKE COMFORTABLE. STEVENSON SAID HE WOULD CALL HIS MOM AND THEN CALL THIS RN BACK WTIH DECISION, ALTHOUGH HE VERBALIZED FEELING LIKE HIS FATHER WOULD NOT WANT TO HAVE ANY FURTHER LIFE SUPPORT EFFORTS. TO THE PATIENTS ROOM TO ASSESS, UPDATED ON TIME LINE OF EVENTS THUS FAR INCLUDING PATIENT OXYGEN SATURATIONS LOW 39% AND PATIENT PLACED TO 15L OXYMASK WELL 6L N.C., PATIENT HAD REBOUNDED WHEN ENTERED ROOM, WAS THEN 90% AND GREATER. PATIENT STATUS LABILE. NO RESPONSIVE TO PAINFUL STIMULI. STEVENSON THE SON CALLED BACK AND TALKED WITH МАРИЯ EXTRUSION PROCESS OPERATOR RN AND ALSO , THEN PHONE PLACED TO SPEAKER FOR CONVERSATION TO BE WITNESSED THAT STEVENSON AND HIS MOTHER AGREE THAT THEY WANT PATIENT TO BE MADE COMFORT MEASURES ONLY AT THIS TIME. NEW ORDER FOR COMFORT MEDICATIONS GIVEN. CALLED TO UPDATE AND GIVE CONSENT TO HAVE ORDER COMFORT CARE MEDICATIONS, AGREED. PATIENT MADE COMFORTABLE PER ASSESSMENT AFTER MEDICATIONS PATIENT PASSED AT 0249, TO THE UNIT TO PRONOUNCE AT 0300.
--- NOTE | 2024-04-07 05:01 | NUR ---
off the unit to [facility]
[2024-04-07] MEDS ORDERED: SCOPOLAMINE 1 MG/3 DAYS PATCH 1 EACH TDSY TD SCH (09:00)
[2024-04-08 10:42] LABS: RBC, LEUKOREDUCED 18212411729600C
[2024-04-08 10:43] LABS: FRESH FROZEN PLASMA 202123815248003-1; FRESH FROZEN PLASMA 20212389157800Y
--- NOTE | 2024-04-09 17:06 | PATH ---
[facility] [address] [place], [place] [address] Signed SPECIMEN(S): A SPLEEN SPECIMEN SOURCE: A. SPLEEN CLINICAL HISTORY: Dizziness. Ruptured spleen. FINAL PATHOLOGIC DIAGNOSIS: Spleen: - Spleen with a 7.5 x 3.5 cm defect consistent with clinical rupture. JVR:cml MICROSCOPIC EXAMINATION: Histologic sections of all submitted blocks are examined by light microscopy. These findings, together with the gross examination, support the pathologic diagnosis. GROSS DESCRIPTION: The specimen, labeled and designated "Anderson, T, " and designated on the requisition "spleen," is received in formalin and consists of 207 g spleen that is 11.2 x 10.8 x 5.6 cm. The external capsule is violaceous with one defect that is 7.5 x 3.5 cm exposing an underlying cavity containing hemorrhagic fluid. The hilum is grossly unremarkable. No hilar lymph nodes are grossly identified. Sectioning reveals 7.8 x 7.0 x 4.5 cm partially collapsed cavity that extends from the hilum to the previously described defect. The uninvolved splenic parenchyma is deep red and rubbery. Door Liner Helper sections are submitted in (A1-A3). FB (under the direct supervision of a pathologist) The Gross Description was prepared using a voice recognition system. The report was reviewed for accuracy; however, sound-alike word errors, addition and/or deletions may occur. If there is any question about this report, please contact Client Services. ADDITIONAL NOTES: Immunohistochemical and/or in situ hybridization studies if performed in this case included appropriate positive controls that reacted as expected. This test was developed and its performance characteristics determined by [facility]. It has not been cleared or approved by the U.S. Food and Drug Administration. The FDA has determined that PATIENT NAME: EVAN DING PATHOLOGY DATE OF : 44 REPORT #: [id number] PHYSICIAN: FRIDA IGNACOI PCP: ANALIA SORIA MD REPORT IS CONFIDENTIAL AND NOT TO BE RELEASED WITHOUT AUTHORIZATION [facility] [address] [facility] [place] [address] Signed such clearance or approval is not necessary. This test is used for clinical purposes. It should not be regarded as investigational or for research. [facility] is certified under the Clinical Laboratory Improvement Amendments of 1988 (CLIA) as qualified to perform high complexity clinical laboratory testing. PERFORMING LABORATORY: Technical component was performed by [facility], [address] [place] [id number] (CLIA# [id number]). Professional interpretation was performed by [facility] - [facility], [address] [place] [phone] (CLIA#: [id number]). Diagnostician: Jessee Snider MD Pathologist Electronically Signed 04/09/2024 Copies: ~ PATIENT NAME: EVAN DING PATHOLOGY DATE OF : 44 REPORT #: [id number] PHYSICIAN: FRIDA IGNACIO PCP: ANALIA SORIA MD REPORT IS CONFIDENTIAL AND NOT TO BE RELEASED WITHOUT AUTHORIZATION
== END 2024-04-07 05:00 | DRG 799 ==
LOC: ED 14:32 → DS 21:03 → DSVR 21:04 → DS 21:04 → DSVR 21:42 → CCU 21:43 → DSVR 21:43 → DS 21:43 → CCU 22:32 → DSVR 22:32 → CCU 22:32
PROVIDERS: Emergency Medicine; Family Medicine; Internal Medicine; ADMIT Colon & Rectal Surgery; ATTEND Internal Medicine
PROC: 0BH17EZ Insertion of Endotracheal Airway into Trachea, Via Natural or Artificial Opening (ICD-10-PCS; 2024-04-01)
PROC: 5A1955Z Respiratory Ventilation, Greater than 96 Consecutive Hours (ICD-10-PCS; 2024-04-01)
PROC: 0T9B70Z Drainage of Bladder with Drainage Device, Via Natural or Artificial Opening (ICD-10-PCS; 2024-04-01)
PROC: 4A133R1 Monitoring of Arterial Saturation, Peripheral, Percutaneous Approach (ICD-10-PCS; 2024-04-01)
PROC: 3E043XZ Introduction of Vasopressor into Central Vein, Percutaneous Approach (ICD-10-PCS; 2024-04-01)
PROC: 30233N1 Transfusion of Nonautologous Red Blood Cells into Peripheral Vein, Percutaneous Approach (ICD-10-PCS; 2024-04-01)
PROC: 06HY33Z Insertion of Infusion Device into Lower Vein, Percutaneous Approach (ICD-10-PCS; 2024-04-01)
PROC: 07TP0ZZ Resection of Spleen, Open Approach (ICD-10-PCS; principal; 2024-04-01 21:00)
PROC: 30233R1 Transfusion of Nonautologous Platelets into Peripheral Vein, Percutaneous Approach (ICD-10-PCS; 2024-04-02)
PROC: 3E0436Z Introduction of Nutritional Substance into Central Vein, Percutaneous Approach (ICD-10-PCS; 2024-04-02)
PROC: 30233K1 Transfusion of Nonautologous Frozen Plasma into Peripheral Vein, Percutaneous Approach (ICD-10-PCS; 2024-04-02)
PROC: 3E0234Z Introduction of Serum, Toxoid and Vaccine into Muscle, Percutaneous Approach (ICD-10-PCS; 2024-04-03)
PROC: 05HY33Z Insertion of Infusion Device into Upper Vein, Percutaneous Approach (ICD-10-PCS; 2024-04-03)
PROC: 02H633Z Insertion of Infusion Device into Right Atrium, Percutaneous Approach (ICD-10-PCS; 2024-04-06)
DX: S36.039A Unspecified laceration of spleen, initial encounter (principal); J69.0 Pneumonitis due to inhalation of food and vomit; J96.01 Acute respiratory failure with hypoxia; S32.018A Other fracture of first lumbar vertebra, initial encounter for closed fracture; E87.20 Acidosis, unspecified; N17.9 Acute kidney failure, unspecified; I48.20 Chronic atrial fibrillation, unspecified; G93.40 Encephalopathy, unspecified; Z66 Do not resuscitate; Z51.5 Encounter for palliative care; I10 Essential (primary) hypertension; R57.1 Hypovolemic shock; G89.29 Other chronic pain; R73.03 Prediabetes; I45.10 Unspecified right bundle-branch block; E83.42 Hypomagnesemia; E83.51 Hypocalcemia; W18.39XA Other fall on same level, initial encounter; Y92.002 Bathroom of unspecified non-institutional (private) residence as the place of occurrence of the external cause; Z23 Encounter for immunization; Z95.1 Presence of aortocoronary bypass graft; Z79.84 Long term (current) use of oral hypoglycemic drugs; Z95.820 Peripheral vascular angioplasty status with implants and grafts; Z78.1 Physical restraint status
CPT/HCPCS: 31500; 36415; 36430; 36556; 36569; 36592; 36600; 36620; 51702; 71045; 71260; 72131; 74177; 80048; 80053; 80061; 81001; 82803; 83036; 83605; 83735; 83880; 84100; 84134; 84484; 85025; 85060; 85610; 85730; 86850; 86900; 86901; 86922; 90648; 90734; 93005; 93010; 94002; 94003; 94150; 94640; 99285-25; A9270; C1751; J0131; J0171; J0330; J1100; J1170; J1450; J1815; J1885; J2060; J2185; J2250; J2405; J2470; J2543; J2704; J2765; J2997; J3010; J3430; J3475; J3490; J7030; J7060; J7121; P9016; P9059